=== PATIENT | female | born 1960 | race Caucasian/White ===

== ENCOUNTER 2019-07-06 05:46 | Emergency (ER) | payer BC, SELFPAY | END 2019-07-06 08:51 | disposition home or self-care (01) | PROVIDERS: Family Provider Family Medicine | DX: J18.9 Pneumonia, unspecified organism (principal); J45.909 Unspecified asthma, uncomplicated ==

== ENCOUNTER 2019-12-17 13:24 | Outpatient (RCR) | payer BC, SELFPAY | END 2020-01-04 23:59 | disposition home or self-care (01) | LOC: SPT 13:24 | PROVIDERS: PCP Family Medicine; Visit Provider Family Medicine | DX: G89.29 Other chronic pain (principal); M54.9 Dorsalgia, unspecified | CPT/HCPCS: 97110; 97161 ==

== ENCOUNTER → 2020-08-21 08:47 | Outpatient (BNVA) | payer BC, SELFPAY | PROVIDERS: PCP Family Medicine; Visit Provider Surgery | DX: R10.9 Unspecified abdominal pain (principal) | CPT/HCPCS: 87635 ==

== ENCOUNTER 2020-08-24 06:46 | Day surgery (SDC) | payer BC, SELFPAY ==
[2020-08-23 11:10] VITALS: BMI 24.1
[2020-08-24] VITALS (10 sets, daily range): BP systolic 116–133; BP diastolic 72–83; PULSE 63–100; RESP 12–22; TEMP 36.3–36.6; O2SAT 99–100
[2020-08-24] MEDS: sodium chloride 0.9% 1,000 ML 30 ML IV (07:20)
--- NOTE | 2020-08-24 07:34 | ANES.PREANE2 ---
Pre-Anesthetic Assessment Pre-Anesthetic Assessment: Height/Weight: Height 1.65 m Weight 65.771 kg Temp Pulse Resp BP Pulse Ox 98 F 68 20 H 133/80 100 08/24/20 07:03 08/24/20 07:03 08/24/20 07:03 08/24/20 07:03 08/24/20 07:03 Preop Diagnosis: abominal pain Proposed Procedure: Operation Date: 08/24/20 08:25 Proposed Procedures p Laparoscopic Cholecystectomy 67792 K80.10(Not Applicable) - Boubacar Abraham MD Familial anesthetic complications: occassional PONV Was Beta Chastity taken within 24 hours: N/A Last intake: Intake Last Liquid Date 08/23/20 Last Liquid Time 23:30 Last Solid Date 08/23/20 Last Solid Time 18:00 Social: Social History: No alcohol and No tobacco Exam: Pre-Anes Outpt Exam: alert, oriented x 3, clear to auscultation bilaterally and regular rate & rhythm Airway: Cervical ROM: WNL MP: 1 Dentition: Partials Pulmonary: Pulmonary: Asthma GI: GI: GERD Anesthetic Plan: ASA status: 3 Anesthesia: General Risk of > 500 ml blood loss (7ml/kg in children): No Meds/Allergies Current Medications: Current Medications Generic Name Dose Route Start Last Admin Trade Name Freq PRN Reason Stop Dose Admin Sodium Chloride 1,000 mls @ 30 ml s/hr 08/24/20 07:00 08/24/20 07:20 Sodium Chloride 0.9% IV 08/25/20 06:59 30 mls/hr .Q24H MERY Administration Data Anesthesia Cardiac Studies: No Data to Display
[2020-08-24 07:47] LABS: Alanine Aminotransferase 7 U/L (0-33); Albumin Level 4.4 g/dL (3.5-5.2); Alkaline Phosphatase 62 IU/L (35-105); Aspartate Amino Transferase 12 U/L (0-32); Globulin 2.5 g/dL (1.3-4.6); Total Bilirubin 0.4 mg/dL (0.15-1.2); Total Protein 6.9 g/dL (6.6-8.7)
--- NOTE | 2020-08-24 07:56 | W.PM.OPSUD ---
Surgery/Procedure H&P Update DATE OF PROCEDURE: August 24, 2020 DATE H&P PERFORMED: 08/15/20 H&P UPDATE INFORMATION: No changes to prior documentation PREOP DIAGNOSIS: abominal pain PLANNED PROCEDURE: Operation Date: 08/24/20 08:25 Proposed Procedures p Laparoscopic Cholecystectomy 37911 K80.10(Not Applicable) - Boubacar Abraham MD
[2020-08-24] MEDS: clindamycin 900 MG/50 ML PREMIX 100 MG IV (08:00)
--- NOTE | 2020-08-24 08:45 | P.OP_ITS ---
Operative Report Date of procedure: August 24, 2020 Pre-op Diagnosis: Symptomatic cholelithiasis. Post-op diagnosis: same Procedure Done: Laparoscopic cholecystectomy. Specimens removed/disposition: Gallbladder. Surgeon: Boubacar Abraham Anesthesia: General Estimated blood loss (mL): 5 Complications: None. Condition: stable Disposition: PACU Procedure: The patient was brought to the Operating Room and was placed in a supine position on the Operating Room table. General endotracheal anesthesia was induced. The abdomen was prepped and draped in a sterile fashion. A small vertical incision was carried out in the inferior aspect of the umbilicus. Blunt dissection was carried out down to the fascia, which was grasped with a Hannah clamp. A stay suture of 0 Vicryl was placed on either side of the midline and the midline fascia was incised. The underlying peritoneum was opened bluntly and the Karina port was placed directly into the peritoneal cavity and was held in place with the inflatable balloon. The peritoneal cavity was insufflated with carbon dioxide. The laparoscope was used to inspect the abdominal cavity. The patient had a light omental adhesion to the left side of the umbilicus. This was eventually taken down. No other gross abnormalities were initially noted. A 5 millimeter port was placed in the epigastrium under direct vision. Two 5-millimeter ports were placed on the right side of the abdomen under direct vision. The gallbladder was grasped and was elevated. The patient had adhesions along the fundus and infundibular region of the gallbladder. These were all taken down using blunt dissection with some cautery to maintain hemostasis. Blunt dissection and hydrodissection were carried out in the infundibular region of the gallbladder and the cystic duct and cystic artery were identified. The gallbladder was partially removed from the liver bed using cautery and the spatula to confirm the anatomy before the structures were clipped and divided. The gallbladder was then removed from the liver bed using cautery and the spatula. After the gallbladder had been removed from the liver bed, the laparoscope was moved to the epigastric port and the gallbladder was removed from the peritoneal cavity through the umbilical port site. The stay sutures of Vicryl were tied to each other at the umbilicus, closing the defect so that it was airtight. The perihepatic spaces were irrigated with saline and the liver bed was reinspected. No ongoing problems were seen. The remaining ports were removed from the abdominal wall and the pneumop eritoneum was evacuated. All skin incisions were closed using inverted interrupted sutures of 4-0 Vicryl. Benzoin and Steri-Strips were placed over the incisions and Band-Aids followed. The patient was taken to the Recovery Area in stable condition postoperatively.
[2020-08-24] MEDS: fentaNYL 50 mcg/mL INJ 2mL IVP (08:51)
[2020-08-24] MEDS: ondansetron 2 mg/ML SDV 2 mL 4 MG IVP (09:03)
[2020-08-24] MEDS: HYDROcodone-acetaminophen 5-325 mg Tablet 1 TAB PO (09:32)
--- NOTE | 2020-08-24 17:18 | ANE.PACU2 ---
Inpatient post-anesthesia follow up: Airway intact: Yes Vital signs: Temperature 97.4 F Pulse Rate 74 Respiratory Rate 16 Blood Pressure 123/83 Pulse Oximetry 100 Oxygen Delivery Me thod Room Air Oxygen Flow Rate 8 Fraction of Inspir ed Oxygen Hydration adequate: Yes Nausea and vomiting: No Pain level: 1 Mental status: Baseline
== END 2020-08-24 09:50 | disposition home or self-care (01) ==
PROVIDERS: PCP Family Medicine; Visit Provider Surgery
PROC: 0FT44ZZ Resection of Gallbladder, Percutaneous Endoscopic Approach (ICD-10-PCS; CPT 47562; principal; 2020-08-24 08:25)
DX: K80.10 Calculus of gallbladder with chronic cholecystitis without obstruction (principal); J45.909 Unspecified asthma, uncomplicated; K21.9 Gastro-esophageal reflux disease without esophagitis
CPT/HCPCS: 47562; 12345; 36415; 80076; 88304; J0131; J1100; J1200; J2250; J2405; J2704; J2710; J3010; J3490; J7030

== ENCOUNTER 2021-02-03 05:27 | Emergency (ER) | payer BC, SELFPAY ==
[2021-02-03 05:45] VITALS: BP 134/81; PULSE 69; RESP 17; TEMP 36.4; O2SAT 98; BMI 24.0
--- NOTE | 2021-02-03 06:08 | XRR_ITS ---
PROCEDURE INFORMATION: Exam: XR Chest Exam date and time: 02/03/2021 6:08 AM Age: 61 years old Clinical indication: Chest wall pain; Additional info: Chest pain TECHNIQUE: Imaging protocol: XR of the chest. Views: 1 view. Total images: 1 COMPARISON: CR Chest 1 [place] [id number] 07/06/2019 6:17 AM FINDINGS: Lungs: Coarse chronic pulmonary markings. Trace atelectasis or scar noted in the left lung base. Pleural spaces: Unremarkable. No pleural effusion. No pneumothorax. Heart/Mediastinum: Small calcified right paratracheal nodes. Bones/joints: Osseous structures are unchanged from the prior exam. XR/XR chest 1V portable [id number] IMPRESSION: 1. Coarse chronic pulmonary markings. 2. Trace atelectasis or scar noted in the left lung base.
--- NOTE | 2021-02-03 06:08 | CTR_ITS ---
PROCEDURE INFORMATION: Exam: CTA Chest With Contrast Exam date and time: 02/03/2021 6:08 AM Age: 61 years old Clinical indication: Pain; Chest pressure; Additional info: Chest pain TECHNIQUE: Imaging protocol: Computed tomographic angiography of the chest with contrast. 3D rendering (Not supervised by radiologist): MIP and/or 3D reconstructed images were created by the technologist. Total images: 840 Radiation optimization: All CT scans at this facility use at least one of these dose optimization techniques: automated exposure control; mA and/or kV adjustment per patient size (includes targeted exams where dose is matched to clinical indication); or iterative reconstruction. Contrast material: VISIPAQUE 320; Contrast volume: 70 ml; Contrast route: INTRAVENOUS (IV); COMPARISON: CR (CHEST, ) 02/03/2021 7:09 AM RADIATION DOSE METRICS: Total DLP (mGy-cm): 467.19 FINDINGS: Pulmonary arteries: Pulmonary artery evaluation of good technical quality with no pulmonary artery embolism identified. Aorta: No aortic aneurysm nor dissection. Lungs: Mild subpleural ground-glass opacities with minimal interstitial thickening seen in the right lung and at the left lung base may represent atelectasis and pneumonia, possible atypical pneumonia. Pleural spaces: Unremarkable. No pneumothorax. No pleural effusion. Heart: Unremarkable. No cardiomegaly. No pericardial effusion. Lymph nodes: Unremarkable. No enlarged lymph nodes. Gallbladder and bile ducts: Prior cholecystectomy noted. Spleen: Incidental splenic granulomata are noted. Bones/joints: Unremarkable. No acute fracture. Soft tissues: Unremarkable. CT/CT angio chest PE protcl [id number] IMPRESSION: 1. No aortic aneurysm nor dissection. 2. No pulmonary artery embolism identified. 3. Mild subpleural ground-glass opacities with minimal interstitial thickening seen in the right lung and at the left lung base may represent atelectasis and pneumonia, possible atypical pneumonia. Radiation Dose CTDIVOL = (mGy): DLP = 467.19 (mGy-cm)
--- NOTE | 2021-02-03 06:08 | ECG_ITS ---
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
[2021-02-03 07:31] LABS: Basophils % 0.4 %; Eosinophils # 0.1 10^3/uL (0.0-0.8); Eosinophils % 1.5 %; Hemoglobin 11.7 g/dL (11.5-15.3); Lymphocytes # 1.3 10^3/uL (0.8-4.8); Lymphocytes % 24.9 %; Mean Corpuscular HGB Conc 33.4 g/dL (30.0-36.0); Mean Corpuscular Hemoglobin 33.9 pg (28.0-34.0); Mean Corpuscular Volume 101.4 fL (81-99); Mean Platelet Volume 11.2 fL (7.4-10.4); Monocytes # 0.4 10^3/uL (0.2-0.9); Monocytes % 7.7 %; Neutrophils # 3.46 10^3/uL (1.8-7.7); Neutrophils % 65.1 %; Nucleated Red Blood Cells % 0 %; Platelet Count 224 10^3/cmm (130-400); Red Blood Count 3.45 10^6/uL (4.1-5.3); Red Cell Distribution Width 11.6 % (12.1-15.1); White Blood Count 5.3 10^3/uL (4.0-10.0)
[2021-02-03 07:45] LABS: Alanine Aminotransferase 9 U/L (0-33); Albumin Level 4.4 g/dL (3.5-5.2); Alkaline Phosphatase 60 IU/L (35-105); Anion Gap 17.8 (5-19); Aspartate Amino Transferase 11 U/L (0-32); Blood Urea Nitrogen 22 mg/dL (8-23); Calcium 9.3 mg/dL (8.5-10.5); Carbon Dioxide 20 mmol/L (22-29); Chloride 105 mmol/L (98-107); Globulin 2.8 g/dL (1.3-4.6); Glomerular Filtration Rate 41.8 mL/min (90-130); Glucose 91 mg/dL (65-115); Osmolality Calculated 289 mOsm/kg (285-295); Potassium 4.8 mmol/L (3.5-5.1); Sodium 138 mmol/L (136-145); Total Bilirubin 0.2 mg/dL (0.15-1.2); Total Protein 7.2 g/dL (6.6-8.7)
[2021-02-03 07:47] LABS: Troponin(5th) Baseline 6 ng/L (0-10)
--- NOTE | 2021-02-03 07:51 | ED_ITS ---
HPI - Chest Pain General: Chief Complaint: Chest Pain Stated Complaint: cp Time Seen by Provider: 02/03/21 06:04 History of Present Illness: HPI narrative: 61-year-old female presents emergency room from chest pain that began yesterday around 5 or 6 PM chest pain central to her chest radiating into her back she has been mildly short of breath with that she does not recall any particular activity it seemed to exacerbate it. There is no worsening with deep inspiration or with palpation. She is 3 weeks post Covid she is not on any anticoagulants. No history of coronary disease no history of hypertension hyperlipidemia diabetes or smoking. No hemoptysis or productive cough no fever sweats or chills. There is no known history of coronary artery disease although she mentions a few of her family members have had it at more than stages. Patient has had episodes like this in the past but have not visited lower lasted as long. No previous evaluation MD complaint: chest pain Onset (ago): hour(s) (Greater than 24 hours) Timing of current episode: episodic Prior episodes: Yes Onset: during rest Pain location: substernal Pain radiation: back Severity: moderate Quality: tightness and heaviness Relieving factors: nothing Exacerbating factors: nothing Context: other (3 weeks post Covid) Associated symptoms: Deny abdominal pain, diaphoresis, dyspnea, fever(s), leg edema, nausea, palpitations, sense of impending doom, syncope or vomiting Treatment prior to arrival: none Review of Systems Const: Denies: fever(s) or diaphoresis ENMT: Denies: throat pain, ear or mastoid pain, nasal discharge or nasal congestion Card: Denies: palpitations or syncope Resp: Denies: dyspnea GI: Denies: abdominal pain, nausea or vomiting : Denies: flank pain, difficulty voiding, dysuria, urinary frequency or urinary urgency Skin/Breast: Denies: rash or pruritus Physical Exam Const: COMMON NORMALS: no acute distress GENERAL APPEARANCE: cooperative and comfortable ORIENTATION/CONSCIOUSNESS: Yes awake, Yes oriented to person, Yes oriented to place and Yes oriented to time HENMT: COMMON NORMALS: normocephalic, atraumatic, hearing grossly normal bilaterally, external ears normal, EAC's normal, TM's normal bilaterally, Normal nasal mucous membranes and turbinates present, moist oral mucous membranes and oropharynx normal HEAD & SCALP: normocephalic and atraumatic NOSE: Normal nasal mucous membranes and turbinates present EXTERNAL EAR: Yes external ears normal EXTERNAL AUDITORY CANAL: EAC's normal TYMPANIC MEMBRANE: TM's normal bilaterally Eye: COMMON NORMALS: Equal, round and reactive pupils present, EOMs intact bilaterally, conjunctivae normal and no scleral icterus CONJUNCTIVA: Yes conjunctivae normal PUPIL: Yes Equal, round and reactive pupils present Neck/C-Spine: COMMON NORMALS: full ROM, no lymphadenopathy, supple and no JVD Lymph: LYMPHATIC: no lymphadenopathy noted and no lymphedema noted Chest: OTHER: Pain reproducible with palpation across the chest and movement. Resp: COMMON NORMALS: normal respiratory effort, No retractions, No use of accessory muscles and clear to auscultation bilaterally AUSCULTATION: clear to auscultation bilaterally Cardio: COMMON NORMALS: no JVD, regular rate, regular rhythm and No murmurs present (Cardio) RATE: regular rate RHYTHM: regular rhythm GI: COMMON NORMALS: Soft to palpation and No hepatosplenomegaly present AUSCULTATION: Yes normoactive bowel sounds PALPATION: Yes Soft to palpation, No Tenderness to palpation present (GI), No Guarding due to palpation present (GI) and Yes No hepatosplenomegaly present Extremity: COMMON NORMALS: normal to inspection, capillary refill normal, no clubbing, cyanosis or edema, no calf tenderness and no pedal edema Neuro: SENSORIUM/ORIENTATION: Yes oriented to person, Yes oriented to place and Yes oriented to time Skin: COMMON NORMALS: no rashes or lesions noted GENERAL SKIN EXAM: no rashes or lesions noted Course Vital Signs: Vital signs: Vital Signs Temperature 97.6 F 02/03/21 05:45 Pulse Rate 83 02/03/21 10:59 Respiratory Rate 16 02/03/21 10:59 Blood Pressure 110/78 02/03/21 10:59 Pulse Oximetry 98 02/03/21 10:59 MDM - Chest Pain MDM Narrative: Medical decision making narrative: Reviewed labs and imaging with the patient. We will discharge her home have her take baby aspirin daily and set her up for a Lexiscan sestamibi stress test. Lab Data: Labs: Lab Results 02/03/21 02/03/21 02/03/21 Range/Units 07:10 07:10 07:10 WBC 5.3 (4.0-10.0) 10^3/ uL RBC 3.45 L (4.1-5.3) 10^6/u L Hgb 11.7 (11.5-15.3) g/dL Hct 35.0 L (37.0-47.0) % MCV 101.4 H (81-99) fL MCH 33.9 (28.0-34.0) pg MCHC 33.4 (30.0-36.0) g/dL RDW 11.6 L (12.1-15.1) % Plt Count 224 (130-400) 10^3/c mm MPV 11.2 H (7.4-10.4) fL Neut % (Auto) 65.1 % Lymph % (Auto) 24.9 % [facility] [place] % (Auto) 7.7 % Eos % (Auto) 1.5 % Baso % (Auto) 0.4 % Neut # (Auto) 3.46 (1.8-7.7) 10^3/u L Lymph # (Auto) 1.3 (0.8-4.8) 10^3/u L [facility] [place] [facility] # (Auto) 0.4 (0.2-0.9) 10^3/u L Eos # (Auto) 0.1 (0.0-0.8) 10^3/u L Baso # (Auto) 0.0 (0.0-0.1) 10^3/u L Nucleated RBC % (a uto) 0 % Nucleated RBCs # 0.0 /100WBC Sodium 138 (136-145) mmol/L Potassium 4.8 (3.5-5.1) mmol/L Chloride 105 (98-107) mmol/L Carbon Dioxide 20 L (22-29) mmol/L Anion Gap 17.8 (5-19) BUN 22 (8-23) mg/dL Creatinine 1.3 H (0.5-0.9) mg/dL GFR Calculation 41.8 L (90-130) mL/min Glucose 91 (65-115) mg/dL Calculated Osmolal ity 289 (285-295) mOsm/k g Calcium 9.3 (8.5-10.5) mg/dL Total Bilirubin 0.2 (0.15-1.2) mg/dL AST 11 (0-32) U/L ALT 9 (0-33) U/L Alkaline Phosphata se 60 (35-105) IU/L Troponin T Baselin e 6 (0-10) ng/L Troponin T 120 Min lime (0-10) ng/L Delta Troponin T (0-10) ABS# Total Protein 7.2 (6.6-8.7) g/dL Albumin 4.4 (3.5-5.2) g/dL Globulin 2.8 (1.3-4.6) g/dL 02/03/21 Range/Units 09:40 WBC (4.0-10.0) 10^3/ uL RBC (4.1-5.3) 10^6/u L Hgb (11.5-15.3) g/dL Hct (37.0-47.0) % MCV (81-99) fL MCH (28.0-34.0) pg MCHC (30.0-36.0) g/dL RDW (12.1-15.1) % Plt Count (130-400) 10^3/c mm MPV (7.4-10.4) fL Neut % (Auto) % Lymph % (Auto) % [facility] [place] [facility] % (Auto) % Eos % (Auto) % Baso % (Auto) % Neut # (Auto) (1.8-7.7) 10^3/u L Lymph # (Auto) (0.8-4.8) 10^3/u L [facility] # (Auto) (0.2-0.9) 10^3/u L Eos # (Auto) (0.0-0.8) 10^3/u L Baso # (Auto) (0.0-0.1) 10^3/u L Nucleated RBC % (a uto) % Nucleated RBCs # /100WBC Sodium (136-145) mmol/L Potassium (3.5-5.1) mmol/L Chloride (98-107) mmol/L Carbon Dioxide (22-29) mmol/L Anion Gap (5-19) BUN (8-23) mg/dL Creatinine (0.5-0.9) mg/dL GFR Calculation (90-130) mL/min Glucose (65-115) mg/dL Calculated Osmolal ity (285-295) mOsm/k g Calcium (8.5-10.5) mg/dL Total Bilirubin (0.15-1.2) mg/dL AST (0-32) U/L ALT (0-33) U/L Alkaline Phosphata se (35-105) IU/L Troponin T Baselin e (0-10) ng/L Troponin T 120 Min lime 6.00 (0-10) ng/L Delta Troponin T 0 (0-10) ABS# Total Protein (6.6-8.7) g/dL Albumin (3.5-5.2) g/dL Globulin (1.3-4.6) g/dL Discharge Plan Discharge Patient Disposition: Home Clinical Impression: Atypical chest pain, Pleuritic chest pain Condition: Stable Prescriptions: New diclofenac sodium 75 mg tablet,delayed release (DR/EC) 75 mg PO Q12H PRN (Reason: pain) Qty: 20 RF: 0 Discontinued naproxen 500 mg Tablet 500 mg PO BID PRN (Reason: Pain) RF: 0 No Action tizanidine 4 mg Tablet 4 mg PO Q8H PRN (Reason: Muscle Spasm) RF: 0 sumatriptan succinate 100 mg Tablet 100 mg PO Q2H PRN (Reason: Migraine Headache) RF: 0 szqxrmdkwg-dgncztlmcgzlz-pdes 50-325-40 mg tablet 1 tab PO PRN PRN (Reason: Migraine Headache) RF: 0 benzonatate 100 mg capsule 100 mg PO PRN PRN (Reason: Cough) RF: 0 pantoprazole 40 mg tablet,delayed release (DR/EC) 40 mg PO DAILY RF: 0 Ventolin HFA 90 mcg/actuation Hfa Aerosol Inhaler 1 inh INHALATION QID RF: 0 Skelaxin 800 mg Tablet 800 mg PO TID PRN (Reason: Muscle Spasm) RF: 0 diclofenac sodium 1 % Gel 2 g TOPICAL QID RF: 0 hydrocodone-acetaminophen 5-325 mg tablet 1 - 2 tab PO Q5H PRN (Reason: pain) Qty: 30 RF: 0 Discharge Orders: Discharge ED (Routine); Ordered 02/03/21 Ordered By: Santosh Escoto Referrals: Chung Loyola MD [Primary Care Provider] - Discharge Diet: Usual diet Discharge Activity: Increase activity as tolerated Patient Instructions: Opioid Safety Activity Restrictions/Additional Instructions: Management will call with schedule for Anirudh quesada stress test Coding Level of Care Code ED 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
[2021-02-03 08:08] VITALS: BP 139/79; PULSE 64; RESP 15; O2SAT 99
--- NOTE | 2021-02-03 08:08 | ECG_ITS ---
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
[2021-02-03] MEDS: iodixanol 320 mg/mL 100mL Btl IV (08:26)
[2021-02-03 10:17] LABS: Troponin 5 2HR Delta 0 ABS# (0-10)
[2021-02-03 10:59] VITALS: BP 110/78; PULSE 83; RESP 16; O2SAT 98
== END 2021-02-03 11:00 | disposition home or self-care (01) ==
PROVIDERS: Emergency Provider Family Medicine; PCP Family Medicine
DX: R07.89 Other chest pain (principal); R07.1 Chest pain on breathing; Z86.16 Personal history of COVID-19
CPT/HCPCS: 71045; 71275; 80053; 84484; 85025; 93005; 99284; Q9967

== ENCOUNTER 2021-03-28 09:21 | Outpatient (CLI) | payer BC, SELFPAY ==
[2021-03-28 09:44] VITALS: BMI 24.9
--- NOTE | 2021-03-28 09:46 | ECG_ITS ---
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 Interpretive Statements NAME OF STUDY: LEXISCAN SESTAMIBI STRESS TEST INDICATION: Chest Pain, PROCEDURE: At the baseline, the EKG revealed normal sinus rhythm with a heart rate of [address]-T changes changes. The baseline blood pressure was 147/84 mm Hg with a heart rate of 74 beats/min. Lexiscan was infused over a period of 20 seconds. A total of 0.4 milligrams of Lexiscan was infused. The stress phase was continued for a total of 5 minutes. Heart rate at the end of the stress phase was 106 with a blood pressure was not obtained. The EKG at the peak infusion revealed no significant changes. Sestamibi was injected 20 seconds after the Lexiscan infusion. Blood pressure at the end of the recovery phase was was not obtained with a heart rate of 102 per minute. CONCLUSION: 1. No significant EKG changes with the LexiScan infusion 2. No LexiScan induced chest pain or cardiac arrhythmia 3. Normal blood pressure and heart rate response 4. Sestamibi/sestamibi perfusion scan pending; see separate report. Electronically Signed On 03-29-2021 0:50:42 CDT by Homero Delgadillo M.D. [id number]
--- NOTE | 2021-03-28 09:47 | NMCV_ITS ---
NM madai perf SPECT r/s* [id number] Oly Loza Age: 61 Gender: F : 1960 Exam Date: 03/28/2021 10:34 Ordering Phys: Chung Loyola MD Technologist: OLLIE Salazar Exam Location: [facility] Indications: CHEST PAIN STRESS TEST Please [facility] IMAGE PROTOCOL Rest/Stress 1 Lexiscan Day Radiopharmaceutical Dose (mCi) Administration Site Administered by Rest: Tc-99m 10.5 IV OLLIE Pineda Sestamibi Stress:Tc-99m 32.3 IV OLLIE Pineda Sestamibi Rest: 28-Mar-2021 60 Discovery 630 Stress: 28-Mar-2021 30 Discovery 630 0.4mg Lexiscan. Images obtained in supine and prone position. SPECT RESULTS Technical Quality: Excellent Raw Data Analysis: Normal Image Corrections: No attenuation or motion correction applied Summed Stress Score: 0 Summed Rest Score: 3 Summed Difference Score: 0 PERFUSION FINDINGS Patchy areas of decreased tracer uptake were noted in the inferoseptal and anteroseptal regions. No significant reversibility was noted in these regions. FUNCTIONAL RESULTS (calculated via Gated SPECT) Stress Image LV EF (%): 76 Stress EDV (mL):78 TID: 0.94 Stress ESV (mL):19 FUNCTIONAL FINDINGS: Segmental wall motion analysis revealing no gross wall motion abnormalities IMPRESSIONS 1. Myocardial perfusion imaging revealing areas of patchy decreased persistent tracer uptake in the inferoseptal and anteroseptal regions, most likely represent attenuation artifacts. 2. Normal LV ejection fraction 76%. 3. LV wall motion analysis revealed no gross wall motion abnormalities. 4. Normal LV volume. No significant coronary ischemia, based on the above findings Dr Homero Delgadillo MD [facility] (Electronically Signed) Final Date: 28 March 2021 18:56 S
[2021-03-28] MEDS: ondansetron 2 mg/ML SDV 2 mL 4 MG IVP ×2 (11:22→11:39)
[2021-03-28] MEDS: regadenoson 0.4 Mg/5 ml Syringe IVP (11:32)
[2021-03-28 11:43] VITALS: BP 140/83; PULSE 99
== END 2021-03-28 09:22 | disposition home or self-care (01) ==
LOC: CDL 09:24
PROVIDERS: PCP Family Medicine; Visit Provider Family Medicine
DX: R07.9 Chest pain, unspecified (principal)
CPT/HCPCS: 78452; 93017; A9500; J2405; J2785

== ENCOUNTER → 2022-07-15 15:12 | Outpatient (BNVA) | payer OTHER, SELFPAY | PROVIDERS: PCP Family Medicine; Referring Provider Family Medicine; Visit Provider Student in an Organized Health Care Education/Training Program | DX: M17.12 Unilateral primary osteoarthritis, left knee (principal) | CPT/HCPCS: 73590 ==

== ENCOUNTER 2022-07-15 16:19 | Outpatient (CLI) | payer OTHER, SELFPAY | END 2022-07-15 16:20 | disposition home or self-care (01) | LOC: SPT 16:19 | PROVIDERS: PCP Family Medicine; Visit Provider Student in an Organized Health Care Education/Training Program | DX: Z46.89 Encounter for fitting and adjustment of other specified devices (principal); M25.562 Pain in left knee | CPT/HCPCS: 97760; L1812 ==

== ENCOUNTER → 2022-09-09 14:07 | Outpatient (BNVA) | payer OTHER, SELFPAY | PROVIDERS: PCP Family Medicine; Visit Provider Student in an Organized Health Care Education/Training Program | DX: M17.0 Bilateral primary osteoarthritis of knee (principal) | CPT/HCPCS: 73560; 73565 ==

== ENCOUNTER 2022-10-07 16:23 | Outpatient (CLI) | payer OTHER, SELFPAY ==
--- NOTE | 2022-10-07 16:30 | CT_ITS ---
WS: [id number] CT LEFT knee, noncontrast HISTORY: Surgery 10/23/2022 TECHNIQUE: Protocol for AKI total knee replacement has been obtained. This includes axial imaging th rough the LEFT hip, LEFT knee and LEFT ankle. DLP: 1019.67 mGy.cm COMPARISON: None available. Pelvis: Mild narrowing of the SI joints. Mild narrowing of the hip joints. No destructive bone lesion s. LEFT knee: Mild tricompartment joint space narrowing with small hypertrophic osteophytes. No fracture or destructive bone process. LEFT ankle: Normal soft tissues. No fractures. CT/CT knee LT wo con* [id number] IMPRESSION: CT imaging provided for [facility] robotic total knee replacement.
== END 2022-10-07 16:24 | disposition home or self-care (01) ==
LOC: RAD 16:26
PROVIDERS: PCP Family Medicine; Visit Provider Student in an Organized Health Care Education/Training Program
DX: M17.12 Unilateral primary osteoarthritis, left knee (principal); Z01.818 Encounter for other preprocedural examination; M25.762 Osteophyte, left knee
CPT/HCPCS: 73700

== ENCOUNTER 2022-10-15 09:18 | Outpatient (CLI) | payer OTHER, SELFPAY | END 2022-10-15 09:19 | disposition home or self-care (01) | LOC: RT 10-17 12:41 | PROVIDERS: PCP Family Medicine; Visit Provider Student in an Organized Health Care Education/Training Program | DX: Z13.6 Encounter for screening for cardiovascular disorders (principal) | CPT/HCPCS: 93005 ==

== ENCOUNTER 2022-10-23 10:00 | Observation (INO) | payer OTHER, SELFPAY ==
[2022-10-15 09:10] VITALS: BMI 24.5
--- NOTE | 2022-10-15 09:18 | ECG_ITS ---
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 Measurements Intervals [place] Rate: 72 P: 61 TX: 161 QRS: 58 QRSD: 90 T: 63 QT: 361 QTc: 398 Interpretive Statements SINUS RHYTHM INTERPRETATION BASED ON A DEFAULT AGE OF 40 YEARS Compared to ECG 02/03/2021 08:26:34 No significant changes Electronically Signed On 10-16-2022 2:23:47 CDT by Homero Dlegadillo M.D. [id number]
[2022-10-15 09:35] LABS: Add Urine Microscopic? NO; Charge for UA Resulting for Rev
--- NOTE | 2022-10-15 09:52 | ANES.PREANE2 ---
Pre-Anesthetic Assessment Height/Weight: Height 1.63 m Weight 64.864 kg Preop Diagnosis: Symptomatic cholelithiasis. Operation Date: 10/23/22 07:00 Proposed Procedures p Left Knee Total AKI 94530,M17.12(Left) - Braydon Fausto, DO Familial anesthetic complications: None Social No alcohol and No tobacco Exam alert, oriented x 3, clear to auscultation bilaterally and regular rate & rhythm Airway Mallampati: Class II Dentition: partials Pulmonary Asthma (mostly during allergies) GI Gastroesophageal Reflux Disease Anesthetic Plan ASA status: 2 Anesthesia: Regional (specify below) (spinal + adductor) Risk of > 500 ml blood loss (7ml/kg in children): No Medications/Allergies Home Medications Medication Instructions Recorded Confirmed Last Taken Type albuterol sulfate 90 mcg/actuation 1 inh inhalation QID 08/23/20 10/15/22 10/15/22 History aerosol inhaler (Ventolin HFA) benzonatate 100 mg capsule 100 mg PO PRN PRN Cough 08/23/20 10/15/22 Unknown History bsaqnwgqaa-yjbtugojlqaip-smtmujyo 1 tab PO PRN PRN Migraine Headache 08/23/20 10/15/22 Unknown History 50 mg-325 mg-40 mg tablet diclofenac sodium 1 % topical gel 2 g topical QID 08/23/20 10/15/22 Unknown History sumatriptan succinate 100 mg tablet 100 mg PO Q2H PRN Migraine Headache 08/23/20 10/15/22 Unknown History tizanidine 4 mg tablet 4 mg PO Q8H PRN Muscle Spasm 08/23/20 10/15/22 Unknown History Hinged Knee Brace #1 ea 07/16/22 10/07/22 Unknown Rx naproxen sodium 220 mg tablet 220 mg PO BID PRN Pain 10/15/22 10/15/22 Unknown History sulfasalazine 500 mg tablet 1,000 mg PO BID 10/15/22 10/15/22 10/15/22 History Allergies Allergy/AdvReac Type Severity Reaction Status Date / Time amitriptyline Allergy ALGY-Rash Verified 10/07/22 13:49 Cephalosporins Allergy ALGY-Rash Verified 10/07/22 13:49 Penicillins Allergy ALGY-Rash Verified 10/07/22 13:49 tramadol Allergy ADR-Seizure Verified 10/07/22 13:49 PFSH Anesthesia Medical History Degenerative joint disease of left knee Data Anesthesia 10/15/22 09:22 10/15/22 09:22 Short CBC 10/15/22 Range/Units 09:22 WBC Cancelled Hgb Cancelled Hct Cancelled MCV Cancelled Plt Count Cancelled Cardiac Studies: Sestamibi Stress Test (Cardiology) 03/28/21
[2022-10-15 09:53] LABS: Basophils % 0.2 %; Eosinophils # 0.1 10^3/uL (0.0-0.8); Eosinophils % 1.9 %; Hematocrit 36.3 % (37.0-47.0); Hemoglobin 12.2 g/dL (11.5-15.3); Lymphocytes # 1.2 10^3/uL (0.8-4.8); Lymphocytes % 28.3 %; Mean Corpuscular HGB Conc 33.6 g/dL (30.0-36.0); Mean Corpuscular Hemoglobin 35.1 pg (28.0-34.0); Mean Corpuscular Volume 104.3 fl (81-99); Mean Platelet Volume 11.3 fL (7.4-10.4); Monocytes # 0.3 10^3/uL (0.2-0.9); Monocytes % 7.7 %; Neutrophils # 2.64 10^3/uL (1.8-7.7); Neutrophils % 61.7 %; Nucleated Red Blood Cells % 0 %; Platelet Count 163 10^3/cmm (130-400); Red Blood Count 3.48 10^6/uL (4.1-5.3); White Blood Count 4.3 10^3/uL (4.0-10.0)
[2022-10-15 09:57] LABS: Bilirubin Urine Neg (Negative); Blood Urine Neg (Negative); Glucose Urine UA Norm (Normal); Ketones Urine Negative (Negative); Nitrate Urine Negative (Negative); Protein Urine Neg (Negative); Specific Gravity, Urine 1.015 (1.005-1.030); Urine Appearance Clear (CLEAR); Urine Color Yellow (Yellow); pH Urine 6 (5-7)
[2022-10-15 09:58] LABS: Anion Gap 14.1 (5-19); Blood Urea Nitrogen 13 mg/dL (8-23); Calcium 9.1 mg/dL (8.5-10.5); Carbon Dioxide 23 mmol/L (22-29); Chloride 105 mmol/L (98-107); Glomerular Filtration Rate 72.9 mL/min (90-130); Glucose 87 mg/dL (65-115); Osmolality Calculated 285 mOsm/kg (285-295); Potassium 4.1 mmol/L (3.5-5.1); Sodium 138 mmol/L (136-145)
[2022-10-15 09:58] LABS: Leukocyte Esterase Urine Negative (Negative); Urobilinogen Urine Norm (Negative)
[2022-10-23] VITALS (19 sets, daily range): BP systolic 93–151; BP diastolic 53–90; PULSE 65–114; RESP 16–18; TEMP 36.1–36.8; O2SAT 96–99
[2022-10-23] MEDS: sodium chloride 0.9% 1,000 ML 30 ML IV (06:12)
--- NOTE | 2022-10-23 06:50 | W.PM.OPSUD ---
Surgery/Procedure H&P Update DATE OF PROCEDURE: October 23, 2022 DATE H&P PERFORMED: 10/07/22 CHANGES TO PREVIOUS DOCUMENTATION: None PREOP DIAGNOSIS: Left knee degenerative joint disease PRIMARY INDICATION FOR PROCEDURE: Left knee degenerative joint disease, failed conservative treatment PLANNED PROCEDURE: Operation Date: 10/23/22 07:25 Proposed Procedures p Left Knee Total AKI 66599,M17.12(Left) - Braydon Lambert DO
[2022-10-23] MEDS: vancomycin 1,500 MG/300 ML PIGGYBACK 200 MG IV (07:48)
[2022-10-23] MEDS: clindamycin 600 MG/50 ML PREMIX 100 MG IV (08:15)
[2022-10-23] MEDS: acetaminophen 1,000 MG/100 ML PIGGYBACK 400 MG IV ×2 (08:20→15:25)
[2022-10-23] MEDS: tranexamic acid 1,000 mg/10mL SDV 1000 MG XX (08:35)
[2022-10-23] MEDS: ketorolac 30 mg/mL INJ XX (08:35)
[2022-10-23] MEDS: EPINEPHrine 1 mg/mL INJ XX (08:35)
--- NOTE | 2022-10-23 08:40 | ANES.PAUD2 ---
Pre-Anesthetic Update Pre-Anesthetic Assessment: Date of Surgery/Procedure: 10/23/22 Preop Diagnosis: Left knee degenerative joint disease Proposed Procedure: Operation Date: 10/23/22 07:25 Proposed Procedures p Left Knee Total AKI 31955,M17.12(Left) - Braydon Lambert, DO Any changes to Pre-Anesthetic Assessment?: No Last Intake: Intake Last Liquid Date 10/22/22 Last Liquid Time 20:00 Last Solid Date 10/22/22 Last Solid Time 20:00 Vitals: Temperature 97.9 F 10/23/22 06:08 Temperature Source Temporal Artery S can 10/23/22 06:08 Pulse Rate 69 10/23/22 06:08 Respiratory Rate 16 10/23/22 06:08 Blood Pressure 147/90 10/23/22 06:08 Blood Pressure Natividad n 109 10/23/22 06:08 Pulse Oximetry 96 10/23/22 06:08 Oxygen Delivery Me thod Room Air 10/23/22 06:08 Exam: Pre-Anes Outpt Exam: alert, oriented x 3, clear to auscultation bilaterally and regular rate & rhythm Cardiac Studies: Sestamibi Stress Test (Cardiology) 03/28/21 Anesthesia Procedures Nerve Block: Nerve Block 1: Main Anesthesia: spinal anesthesia block Time Out Performed: Yes Consent: requested by attending/covering physician, from patient, risks and benefits reviewed and patient agrees to proceed Nerve block location: adductor canal (left) Anesthesia monitors applied: pulse oximetry, EKG, BP cuff and oxygen Nerve block position: supine Anesthetic Used: ropivicaine 0.5% Amount of anesthesia used (mL): 20 Ultrasound used to: recognize landmarks Nerve Stimulator Used?: No Interscalene/Femoral BLK: 4 stimuplex 21 g needle used for position and inplane approach Injection: neg aspiration of heme Patient Tolerated Procedure: well Complications: none
--- NOTE | 2022-10-23 09:55 | P.OP_ITS ---
Brief Operative Note Date of procedure: 10/23/22 Pre-op diagnosis: Left knee degenerative joint disease Post-op diagnosis: same Procedure Done: Left total knee arthroplasty, cemented?Sloan robotic assisted Surgeon: Braydon Lambert Estimated blood loss (mL): 15 Complications: None Post-op Plan: Patient taken to PACU in stable condition recovering well. Will be admitted to the floor. Internal medicine consulted for medical management. PT/OT, weightbearing as tolerated left lower extremity, postoperative antibiotics, po stoperative TXA, pain control, DVT prophylaxis. Patient will receive appropriate discharge instruction as well as pain medication and DVT prophylaxis postoperatively. We will follow-up with me in the office in 2 weeks. All questions answered Condition: stable Disposition: floor Coding Level of Care Code Acute Code for Natty Wilson
--- NOTE | 2022-10-23 09:55 | P.OP_ITS ---
Operative Report Date of procedure: October 23, 2022 Pre-op diagnosis: Preop Diagnosis Left knee degenerative joint disease Procedure: Post-op diagnosis: Same Procedure done: Left total knee arthroplasty, cemented?robotic assisted Lsoan Implants: [place] triathlon size 4 femur?CR cemented [place] triathlon size 4 tibia universal baseplate cemented Sury triathlon symmetric patella size 33 mm Sury triathlon polyethylene 9 mm Surgeon: Braydon Lambert DO Estimated blood loss: 15 mL Tourniquet time: 62minutes IV fluids: 1000 mL Urine output: 400mL Complications: None Condition: stable Disposition: floor Brief History: Oly is a pleasant 62-year-old female established in my practice with chronic left knee degenerative joint disease.? pts has failed conservative treatment.? We talked about continued conservative approach versus operative intervention for her left knee given tricompartmental degenerative changes would recommend a left total knee arthroplasty as she has failed conservative treatment.? Through shared decision making she would like to proceed with this. ? We talked about continued conservative treatment and surgical intervention as far as the risk benefits complications alternatives surgical and nonsurgical treatment options.? At this point time understanding pts risks with surgery pt agrees to proceed with surgical intervention.? Once again? risk with surgery include but are not limited to make it better make it worse blood clot, heart attack, stroke, on the table, infection, injury to nerves or vessels, persistent pain, arthrofibrosis, implant failure.? Understanding these risks she agrees to proceed with surgical intervention consent was obtained in the office.? All questions answered. Procedure: Patient was seen and evaluated in the preoperative holding area.? Consent was reviewed and signed with patient with plan for left total knee arthroplasty.? All questions answered.? Correct extremities marked.? Patient seen and evaluated by the anesthesia department and once cleared for surgery was taken back to the operative suite.? Patient was placed into a supine position on the OR table.? All bony prominences were well-padded.? Patient was appropriately secured to the bed.? Patient underwent anesthesia per the anesthesia department.? Patient received spinal anesthesia and Long catheter was placed.? A nonsterile tourniquet was applied to the left thigh.? At this point in time a final timeout performed.? Patient received appropriate preoperative antibiotics and TXA. Next the the left lower extremity was then prepped and draped in standard orthopedic fashion.?Esmarch tourniquet was used exsanguinate the left lower extremity.? Tourniquet was insufflated to 250 mmHg. A standard anterior incision was made over midline of the knee.? Sharp scalpel excision through skin and subcutaneous tissue full-thickness skin flaps were made.? Fascia was elevated off of the extensor retinaculum was stable with medial parapatellar arthrotomy was then made.? The performed standard sequential releases.? Visualization of all 3 compartments was found to have eburnated bone in all 3 compartments with osteophyte formation.? Symmetrical joint space collapse and eburnated bone was appreciated. Next the the patella was then stuffed laterally and the knee was then flexed.? Jose was placed superiorly and medial around the anterior aspect of the femur this was freed of synovium and I subsequently then placed by 2 femur pins to establish my femur arrays for the Sloan robot.? These were then placed bicortically and? femur array was then appropriately secured with appropriate visualization.? Next attention was turned towards the tibial rays.? These were then drilled sequentially bicortically in parallel fashion and intraincisional.? I then placed my guide as well as my tibial array on in place.? This was appropriately secured and had excellent visualization with the Sloan robot.? Next the tibial checkpoint as well as femur checkpoint were then placed.? At this point time I then subsequently established my head center as well as my medial and lateral malleoli as well as my checkpoints.? Next utilizing standard Sloan technology I then mapped out the appropriate points and confirmation points around the femur as well as the tibia in standard fashion.? Once this was then done I then removed all osteophytes in preparation for dynamic testing.? All osteophytes were removed as well as I removed the ACL and PCL as this was significantly degenerative and plan for ultracongruent poly, anterior horn of the lateral meniscus was excised.? At this point time the knee was brought into full extension and we performed our standard evaluation of our gap balancing stressing? ligaments and extension as well as flexion appropriate adjustments were made to have appropriate gap balancing in both flexion and extension.? Made appropriate adjustments for appropriate gap balancing altering our femoral and tibial cuts.? We get a preoperative plan evaluating our implants which was a size 4 femur and a size 4 tibia.? Next we brought in the Sloan robot and sequentially made our femur cuts.? All? bony cuts were then removed.? Finally we made our tibial cut.? Once this was done a standard PCL retractor was then placed into this position I excised the medial and lateral meniscus.? The tibial cut was then subsequently removed all excess bony debris was removed.?? I then utilized a lamina corporate recruiter and remove the posterior osteophytes.? At this point time sized the tibia and confirmed this was a size 4.? I utilized our blunt probe to establish rotation of tibial implant using [employer] robot technology.? Once this was done I then placed my tibia size 4 trial in appropriate position and then subsequently placed tibial pins to hold this into place placed a size 9 mm poly as well as a size 4 femur which was appropriately impacted in place knee was then subsequently brought into extension.? Patient was found to achieve full extension and was balance varus valgus in extension as well as mid flexion and when brought up to flexion patient had excellent stability and appropriate gap balancing both medially and laterally. Once this was done I had excellent balance gaps in flexion and extension with varus and valgus stresses.? At this point I was satisfied with these implants I called open the implants and these were then verified and opened on the back table size 4 tibia, size 4 femur,? size 9 mm polythickness.? We did confirm appropriate gap balancing and stresses as well as alignment utilizing? Sloan and were satisfied with this plan.? ?At this point time with my trials in place I then towel clip the patella everted this made appropriate measurements subsequently utilizing freehand technique performed by patellar resurfacing this was confirmed to be appropriate resection and subsequently sized to be a 33 mm symmetric.?? drill peg guides were then clamped and appropriate position and appropriate position in the patella for appropriate tracking and parallel with the joint.? Pegs were drilled trial implant was placed and the knee was then subsequently ranged and found to have excellent patellar tracking.? Femur pegs were then drilled.?All checkpoints as well as guidepins and arrays were removed and appropriate counts made. Satisfied with our tibial placement rotation I then utilized the keel punch and prepped the tibia.? At this point time all of our trial implants were removed.? ? The wound bed? was thoroughly irrigated and dried and prepped for cementation.? Cement was mixed on the back table.? Once cement was ready this was then covered onto the tibia and the tibial baseplate was then impacted and all excess cement was removed.? Next the polyethylene was then impacted into place on the tibial baseplate.? Next cement was placed onto the femur as well as under the femur implants and impacted in to place and all excess cement was removed.? Knee was taken into full extension? to clear all excess cement was removed.? Warm saline was placed over the joint.? I then towel clip patella and dried for cementation. cemented the patella implant into place.? This was all clamped and the cement was allowed to cure.? Holding axial load pressure as well as maintaining full extension and the cement was allowed to cure and all excess cement was removed.? Thorough irrigation performed with pulse lavage.? I then placed periarticular injection while the cement was curing.? Once cured the knee was taken through range of motion and had excellent stability and gaps balances.? Tourniquet was then deflated.? Once tourniquet was deflated hemostasis satisfactory with electrocautery.? Next I then subsequently closed the capsule with Ethibond suture as well as a running strata fix suture.? Knee was then taken through range of motion 30 times.? Next the skin was then closed in layered fashion of running stratifix sutures of deep and subcutenous tissue and skin.? Patient was closed in flexion with jose for skin.? Incision was covered with Silverlon, ABDs soft roll and Alvin wrap.? Patient was then awakened from anesthesia and taken to PACU in stable condition. Disposition: Patient taken to PACU in stable condition will be admitted to the floor for pain control PT/OT weight-bear as tolerated left lower extremity dressing changes as needed, DVT prophylaxis.?Pain control. Patient will receive appropriate postoperative antibiotics. patient will be seen today by the internal medicine team for medical management.? Patient will follow up with the office in 2 weeks.? Patient understands agrees with current plan.? All questions answered.
--- NOTE | 2022-10-23 09:55 | XR_ITS ---
WS: [id number] Left knee, AP and lateral views, 10/23/2022 Clinical Data: postop TKA Comparison: AP knees, left knee, 09/09/2022 Findings: The left knee arthroplasty components are in good position. There is air in the joint space from rec ent surgery. XR/XR knee LT 1-2V [id number] Impression: Left knee arthroplasty. Kellgren-Rodolfo Classification:
--- NOTE | 2022-10-23 09:55 | P.PCN_ITS ---
PACU note Narrative: Patient taken PACU in stable condition recovering well pain controlled. Patient's spinal anesthesia was on and affect unable to assess motor or sensory postoperatively. Dressing on in place clean dry and intact toes are warm well- perfused brisk cap refill less than 2 seconds distal pulses are palpable Exam: awake Disposition: admitted
--- NOTE | 2022-10-23 11:25 | P.CONIM_ITS ---
Providers/Reason For Consult Consulting Physician/Specialty*: mary Escalonaist Reason for Consult*: Medical management Attending Physician: Braydon Lambert DO Primary Care Provider: Chung Loyola MD History of Present Illness History of Present Illness Oly Loza is a 62 year old female who underwent left total knee arthroplasty without complication this morning. I have been asked to see her in regards to medical management. Patient reports she does not have any significant problems other than migraine headaches and arthritis. She reports her pain is controlled currently. Review of Systems General: Reports: 10 or more systems reviewed and unremarkable except in HPI and below Card: Denies: chest pain Resp: Denies: dyspnea Medications/Allergies Home Medications Medication Instructions Recorded Confirmed Last Taken Type albuterol sulfate 90 mcg/actuation 1 inh inhalation QID 08/23/20 10/15/22 10/22/22 History aerosol inhaler (Ventolin HFA) benzonatate 100 mg capsule 100 mg PO PRN PRN Cough 08/23/20 10/15/22 Unknown History [id number]-olyjoejhahngf-iybtpoir 1 tab PO PRN PRN Migraine Headache 08/23/20 10/15/22 Unknown History 50 mg-325 mg-40 mg tablet diclofenac sodium 1 % topical gel 2 g topical QID 08/23/20 10/15/22 Unknown History sumatriptan succinate 100 mg tablet 100 mg PO Q2H PRN Migraine Headache 08/23/20 10/23/22 10/22/22 History tizanidine 4 mg tablet 4 mg PO Q8H PRN Muscle Spasm 08/23/20 10/15/22 Unknown History Hinged Knee Brace #1 ea 07/16/22 10/07/22 Unknown Rx naproxen sodium 220 mg tablet 220 mg PO BID PRN Pain 10/15/22 10/23/22 10/18/22 History sulfasalazine 500 mg tablet 1,000 mg PO BID 10/15/22 10/15/22 10/15/22 History Allergies Allergy/AdvReac Type Severity Reaction Status Date / Time amitriptyline Allergy ALGY-Rash Verified 10/07/22 13:49 Cephalosporins Allergy ALGY-Rash Verified 10/07/22 13:49 Penicillins Allergy ALGY-Rash Verified 10/07/22 13:49 tramadol Allergy ADR-Seizure Verified 10/07/22 13:49 PFSH Acute PFSH: Medical History (Updated 10/23/22 @ 11:29 by Paco Curtis MD) Degenerative joint disease of left knee DJD (degenerative joint disease) Migraine headache Surgical History (Updated 10/23/22 @ 11:27 by Paco Curtis MD) History of appendectomy History of cholecystectomy History of hysterectomy History of tubal ligation Family History (Updated 10/23/22 @ 11:27 by Paco Curtis MD) Other Stroke Social History (Updated 10/23/22 @ 11:27 by Paco Curtis MD) Smoking and tobacco status: never smoked Alcohol intake: never Vitals/I&O/Wt Last Vital Signs Temp 97 F L 10/23/22 09:55 Pulse 89 10/23/22 10:20 Resp 18 10/23/22 10:20 BP 122/75 10/23/22 10:20 Pulse Ox 97 10/23/22 10:20 O2 Del Method Room Air 10/23/22 10:36 10/22/22 10/23/22 10/23/22 22:59 06:59 14:59 Intake Total 1560 / 1560 Output Total 415 / 415 Balance 1145 / 1145 Physical Exam Narrative: General exam is white female, no distress HEENT: Pupils equally round. Oropharynx clear Neck is supple, no obvious thyromegaly or lymphadenopathy Cardiovascular regular rate and rhythm without murmur, no S3 or S4 Lungs clear no wheezing or crackles Abdomen is soft with positive bowel sounds. No obvious organomegaly exam deferred Extremities no cyanosis clubbing or edema, dressing present left knee Urinary Catheter Management: Long: Cath Placed During This Visit: yes Urinary Catheter Date of Insertion: 10/23/22 Urinary Catheter Time of Insertion: 07:52 Data 10/15/22 09:22 10/15/22 09:22 Other Labs: UA negative Previous nuclear stress test March 2021 no evidence of reversible ischemia EKG which I reviewed from October 15 demonstrated normal sinus rhythm, normal axis, no acute changes A&P Assessment and plan (1) Degenerative joint disease of left knee: Status post total knee arthroplasty Surgery is ordered appropriate pain control with ketorolac, acetaminophen, oxycodone and tramadol for breakthrough pain CBC and BMP tomorrow, to check for any postoperative anemia as well as check renal function on IV fluids in this patient who is going to be placed on anti- inflammatories Aspirin is going to be used for DVT prophylaxis (2) Migraine headache: On no preventative medications. Monitor for any headaches and should they occur consider sumatriptan (3) DJD (degenerative joint disease): Hold sulfasalazine as she will be getting anti-inflammatory IV in the form of ketorolac Plan Thank you for this consultation I will sign off at this time, but will be available for any questions or problems if they occur Diagnoses Degenerative joint disease of left knee M17.12 Migraine headache G43.909 DJD (degenerative joint disease) M19.90 Time Spent (min) 37
[2022-10-23] MEDS: ondansetron 2 mg/ML SDV 2 mL 4 MG IVP (11:39)
[2022-10-23] MEDS: scopolamine 1.5 Patch 1 PATCH TRANSDERMA (12:08)
--- NOTE | 2022-10-23 12:40 | ANE.PACU2 ---
Inpatient post-anesthesia follow up: Airway intact: Yes Vital signs: Temperature 97.0 F Pulse Rate 75 Respiratory Rate 18 Blood Pressure 151/84 Pulse Oximetry 99 Oxygen Delivery Me thod Room Air Oxygen Flow Rate Fraction of Inspir ed Oxygen Hydration adequate: Yes Nausea and vomiting: No Pain level: 1 Mental status: Baseline
[2022-10-23] MEDS: chlorhexidine gluconate 0.12% Btl 473 mL 30 ML MUCOUS MEM ×3 (12:49→21:45)
[2022-10-23] MEDS: oxyCODONE 5 mg IR Tab/Cap PO ×2 (13:42→18:25)
[2022-10-23] MEDS: clindamycin 900 MG/50 ML PREMIX 100 MG IV (15:25)
[2022-10-23] MEDS: iron polysaccharide complex 150 mg Capsule PO (17:54)
[2022-10-23] MEDS: calcium carbonate 500 mg Chew Tablet 1000 MG PO (17:54)
[2022-10-23] MEDS: docusate sodium 100 mg Capsule PO (17:54)
[2022-10-23] MEDS: lactated ringers 1,000 ML 100 ML IV (17:55)
[2022-10-23] MEDS: ketorolac 30 mg/mL INJ 15 MG IVP (17:55)
--- NOTE | 2022-10-23 18:54 | PC.NURSE ---
Patient has done very well today. Pain has been controlled. Patient has been up with therapy and tolerated very well. This nurse removed the maria catheter around 1530. Patient currently resting in bed with at bedside.
[2022-10-23] MEDS: HYDROmorphone 1 mg/mL INJ 1 mL 0.5 MG IVP (21:19)
[2022-10-24] VITALS (8 sets, daily range): BP systolic 117–148; BP diastolic 70–76; PULSE 64–69; RESP 15–18; TEMP 36.7–36.9; O2SAT 94–96
[2022-10-24] MEDS: oxyCODONE 5 mg IR Tab/Cap PO ×3 (00:32→12:26)
[2022-10-24] MEDS: acetaminophen 1,000 MG/100 ML PIGGYBACK 400 MG IV ×2 (00:34→08:06)
[2022-10-24] MEDS: clindamycin 900 MG/50 ML PREMIX 100 MG IV ×2 (00:52→10:22)
[2022-10-24] MEDS: HYDROmorphone 1 mg/mL INJ 1 mL 0.5 MG IVP (04:46)
[2022-10-24] MEDS: lactated ringers 1,000 ML 100 ML IV (05:15)
[2022-10-24 05:29] LABS: Basophils % 0.2 %; Eosinophils % 0.7 %; Hematocrit 30.2 % (37.0-47.0); Lymphocytes % 16.9 %; Mean Corpuscular HGB Conc 33.1 g/dL (30.0-36.0); Mean Corpuscular Hemoglobin 35.3 pg (28.0-34.0); Mean Corpuscular Volume 106.7 fl (81-99); Mean Platelet Volume 11.9 fL (7.4-10.4); Monocytes # 0.5 10^3/uL (0.2-0.9); Monocytes % 9.1 %; Neutrophils # 4.11 10^3/uL (1.8-7.7); Neutrophils % 72.9 %; Nucleated Red Blood Cells % 0 %; Platelet Count 131 10^3/cmm (130-400); Red Blood Count 2.83 10^6/uL (4.1-5.3); White Blood Count 5.6 10^3/uL (4.0-10.0)
[2022-10-24 05:46] LABS: Anion Gap 12.3 (5-19); Blood Urea Nitrogen 10 mg/dL (8-23); Calcium 8.6 mg/dL (8.5-10.5); Carbon Dioxide 25 mmol/L (22-29); Chloride 104 mmol/L (98-107); Glomerular Filtration Rate 101.6 mL/min (90-130); Glucose 98 mg/dL (65-115); Osmolality Calculated 285 mOsm/kg (285-295); Potassium 3.3 mmol/L (3.5-5.1); Sodium 138 mmol/L (136-145)
[2022-10-24] MEDS: ondansetron 2 mg/ML SDV 2 mL 4 MG IVP (06:31)
[2022-10-24] MEDS: calcium carbonate 500 mg Chew Tablet 1000 MG PO (08:09)
[2022-10-24] MEDS: iron polysaccharide complex 150 mg Capsule PO (08:12)
[2022-10-24] MEDS: chlorhexidine gluconate 0.12% Btl 473 mL 30 ML MUCOUS MEM (08:12)
[2022-10-24] MEDS: potassium chloride ER 20 mEq Tablet 40 MEQ PO (08:12)
[2022-10-24] MEDS: multivitamin therapeutic Tablet 1 TAB PO (08:12)
[2022-10-24] MEDS: docusate sodium 100 mg Capsule PO (08:12)
[2022-10-24] MEDS: mupirocin oint 22 gm 1 APPLIC NASAL (08:12)
[2022-10-24] MEDS: cholecalciferol (vitamin D3) 1,000 unit Tablet 1000 UNIT PO (08:12)
[2022-10-24] MEDS: aspirin 325 mg EC Tablet PO (08:12)
[2022-10-24] MEDS: vancomycin 1,500 MG/300 ML PIGGYBACK 200 MG IV (08:12)
[2022-10-24] MEDS: metoclopramide 5 mg/mL SDV 2 mL 10 MG IV (08:26)
--- NOTE | 2022-10-24 08:40 | PM.PN ---
Subjective Subjective: Some knee pain but overall controlled. No other complaints. Medications: Reviewed: Yes Vitals/I&O/Wt Last Vital Signs Temp 98.4 F 10/24/22 08:00 Pulse 68 10/24/22 08:00 Resp 15 10/24/22 08:00 BP 129/70 10/24/22 08:00 Pulse Ox 94 10/24/22 08:00 O2 Del Method Room Air 10/24/22 07:46 10/23/22 10/24/22 10/24/22 22:59 06:59 14:59 Intake Total 380 / 2060 1470 / 3530 278.333 / 278.333 Output Total 1000 / 1415 350 / 1765 Balance -620 / 645 1120 / 1765 278.333 / 278.333 Physical Exam Narrative: General exam no distress Cardiovascular regular rate and rhythm without murmur, no S3 or S4 Lungs clear Abdomen is soft with positive bowel sounds. No obvious organomegaly Extremities no cyanosis clubbing or edema, dressing present left knee Urinary Catheter Management: Long: Cath Placed During This Visit: yes, but has since been removed by the nurse Reason for Continuing Indwelling Catheter: Decision to DC Catheter Urinary Catheter Date of Insertion: 10/23/22 Urinary Catheter Time of Insertion: 07:52 Date Urinary Catheter Removed: 10/23/22 Time Urinary Catheter Discontinued: 15:34 Data 10/24/22 04:37 10/24/22 04:37 A&P Assessment and plan (1) Degenerative joint disease of left knee: Status post total knee arthroplasty Surgery is ordered appropriate pain control with ketorolac, acetaminophen, oxycodone and tramadol for breakthrough pain Aspirin is being used for DVT prophylaxis (2) Migraine headache: On no preventative medications. Monitor for any headaches and should they occur consider sumatriptan (3) DJD (degenerative joint disease): Hold sulfasalazine as she will be getting anti-inflammatory IV in the form of ketorolac Plan Hypokalemia. Supplement today. Acute postoperative blood loss anemia. Mild. Thank you for this consultation Reduce fluids Overall doing well. No medical contraindications to discharge Attestations Medical Necessity Statement*: As per primary Diagnoses Degenerative joint disease of left knee M17.12 Migraine headache G43.909 DJD (degenerative joint disease) M19.90
--- NOTE | 2022-10-24 13:40 | PM.PN ---
Subjective Subjective: Patient is seen in her room. She feels that she is doing well following her total knee arthroplasty. She has no significant complaints, and wishes to be discharged home today. Medications: Reviewed: Yes Vitals/I&O/Wt Last Vital Signs Temp 98.5 F 10/24/22 12:00 Pulse 64 10/24/22 12:00 Resp 15 10/24/22 12:26 BP 148/76 10/24/22 12:00 Pulse Ox 96 10/24/22 12:26 O2 Del Method Room Air 10/24/22 07:46 10/23/22 10/24/22 10/24/22 22:59 06:59 14:59 Intake Total 380 / 2060 1470 / 3530 888.333 / 888.333 Output Total 1000 / 1415 350 / 1765 Balance -620 / 645 1120 / 1765 888.333 / 888.333 Physical Exam Narrative: Patient is seen in her room. Her is with her. Alvin wrap and soft roll are removed from the patient's left lower extremity. OpSite dressing remains intact, and there is minimal to no bleeding noted on the dressing. She is neurologically intact with no evidence of DVT. She has been ambulating independently with physical therapy. Urinary Catheter Management: Long: Cath Placed During This Visit: yes, but has since been removed by the nurse Reason for Continuing Indwelling Catheter: Decision to DC Catheter Urinary Catheter Date of Insertion: 10/23/22 Urinary Catheter Time of Insertion: 07:52 Date Urinary Catheter Removed: 10/23/22 Time Urinary Catheter Discontinued: 15:34 Data 10/24/22 04:37 10/24/22 04:37 A&P Assessment and plan (1) Degenerative joint disease of left knee: Patient underwent uneventful left total knee arthroplasty. She is doing well following this and is working with physical therapy. She is felt to be independent and safe for discharge to home. There is no evidence of DVT. Her OpSite dressing is left in place. She will follow-up as scheduled and will be given aspirin twice daily for DVT prophylaxis. She will follow-up with Dr. Lambert as previously scheduled. (2) History of total left knee replacement: Attestations Medical Necessity Statement*: Patient will be discharged home to follow-up. Coding Level of Care Code Acute Code for [facility] [place] Diagnoses Degenerative joint disease of left knee M17.12 History of total left knee replacement Z96.656
--- NOTE | 2022-10-24 14:03 | P.DS_ITS ---
Discharge Providers Date of Admission: 10/23/22 10:00 Date of Discharge: October 24, 2022 Attending Provider at Admission: Braydon Labmert DO Attending Provider at Discharge: Braydon Lambert DO Consults: Internal medicine?Dr. Curtis Primary Care Provider: Chung Loyola MD Diagnoses at Discharge Discharge Diagnosis (1) Degenerative joint disease of left knee: Status: Resolved (2) History of total left knee replacement: Status: Acute Reason for Visit Reason for Visit: M17.12 Brief History: Left knee degenerative joint disease?patient underwent left total knee arthroplasty Hospital Course Hospital Course Patient presented to the preoperative holding area with plan for left total knee arthroplasty after patient has been worked up in the outpatient setting for failed conservative treatment of left knee degenerative joint disease. Once cleared by anesthesia for surgery patient subsequently was taken back to the operative suite she underwent spinal anesthesia and then subsequently underwent a left total knee arthroplasty. Procedure was performed without any complications patient was taken to PACU in stable condition patient recovered well in PACU and then was admitted to the floor postoperatively internal medicine was consulted and on board for medical management and assistance with care. Patient received appropriate PT/OT, postoperative antibiotics, postoperative TXA, pain control, postoperative DVT prophylaxis. Elevation and ice. Patient encouraged for knee range of motion allowed weightbearing as tolerated to the left lower extremity. Dressing was changed as needed her labs were monitored daily. Patient recovered well postoperatively and worked well and progressed well with therapy. It was determined on postoperative day 1 the patient was stable for discharge from an orthopedic standpoint as well as internal medicine standpoint. Patient was comfortable with discharge and plan was discharged home. Patient received appropriate discharge instruction as well as pain medication and DVT prophylaxis postoperatively. Given appropriate instructions for her dressing management. Patient will follow-up with Dr. Lambert in the office in 2 weeks. All questions answered. Understand if there is any issues questions or concerns and contact the office. Physical Exam Narrative: I was out of town day of discharge?physical examination by my partner Dr. Rae day of discharge 10/24/2022: patient is seen in her room.? Her is with her.? Alvin wrap and soft roll are removed from the patient's left lower extremity.? OpSite dressing remains intact, and there is minimal to no bleeding noted on the dressing.? She is neurologically intact with no evidence of DVT.? She has been ambulating independently with physical therapy. Urinary Catheter Management: Long: Cath Placed During This Visit: yes, but has since been removed by the nurse Reason for Continuing Indwelling Catheter: Decision to DC Catheter Urinary Catheter Date of Insertion: 10/23/22 Urinary Catheter Time of Insertion: 07:52 Date Urinary Catheter Removed: 10/23/22 Time Urinary Catheter Discontinued: 15:34 Discharge Data Studies Completed and Pending Completed Studies During Hospitalization Category Date Time Status XR knee LT 1-2V [id number] Routine Exams 10/23/22 09:55 Completed Radiology Impressions Knee X-Ray 10/23/22 09:55 Impression: Left knee arthroplasty. Kellgren-Rodolfo Classification: Laboratory Results WBC 5.6 10^3/uL (4.0-10.0) 10/24/22 04:37 Corrected WBC Cancelled 10/15/22 09:22 RBC 2.83 10^6/uL (4.1-5.3) L 10/24/22 04:37 Hgb 10.0 g/dL (11.5-15.3) L 10/24/22 04:37 Hct 30.2 % (37.0-47.0) L 10/24/22 04:37 MCV 106.7 fl (81-99) H 10/24/22 04:37 MCH 35.3 pg (28.0-34.0) H 10/24/22 04:37 MCHC 33.1 g/dL (30.0-36.0) 10/24/22 04:37 RDW 12.0 % (12.1-15.1) L 10/24/22 04:37 Plt Count 131 10^3/cmm (130-400) 10/24/22 04:37 MPV 11.9 fL (7.4-10.4) H 10/24/22 04:37 Neut % (Auto) 72.9 % 10/24/22 04:37 Lymph % (Auto) 16.9 % 10/24/22 04:37 Harris % (Auto) 9.1 % 10/24/22 04:37 Eos % (Auto) 0.7 % 10/24/22 04:37 Baso % (Auto) 0.2 % 10/24/22 04:37 Neut # (Auto) 4.11 10^3/uL (1.8-7.7) 10/24/22 04:37 Lymph # (Auto) 1.0 10^3/uL (0.8-4.8) 10/24/22 04:37 Harris # (Auto) 0.5 10^3/uL (0.2-0.9) 10/24/22 04:37 Eos # (Auto) 0.0 10^3/uL (0.0-0.8) 10/24/22 04:37 Baso # (Auto) 0.0 10^3/uL (0.0-0.1) 10/24/22 04:37 Nucleated RBC % (auto) 0 % 10/24/22 04:37 Total Counted Cancelled 10/15/22 09:22 Atypical Lymphs % Cancelled 10/15/22 09:22 Absolute Neutrophils Cancelled 10/15/22 09:22 Segmented Neutrophils Cancelled 10/15/22 09:22 Abs Segm Neuts (Man) Cancelled 10/15/22 09:22 Band Neutrophils Cancelled 10/15/22 09:22 Abs Band Neuts (Man) Cancelled 10/15/22 09:22 Absolute Lymphocytes Cancelled 10/15/22 09:22 Lymphocytes (Manual) Cancelled 10/15/22 09:22 Monocytes (Manual) Cancelled 10/15/22 09:22 Absolute Monocytes Cancelled 10/15/22 09:22 Eosinophils (Manual) Cancelled 10/15/22 09:22 Absolute Eosinophils Cancelled 10/15/22 09:22 Basophils (Manual) Cancelled 10/15/22 09:22 Absolute Basophils Cancelled 10/15/22 09:22 Metamyelocytes Cancelled 10/15/22 09:22 Myelocytes Cancelled 10/15/22 09:22 Promyelocytes Cancelled 10/15/22 09:22 Nucleated RBCs Cancelled 10/15/22 09:22 Nucleated RBCs # 0.0 /100WBC 10/24/22 04:37 Pathologist Review Cancelled 10/15/22 09:22 Hypersegmented Polys Cancelled 10/15/22 09:22 Blast Cells Cancelled 10/15/22 09:22 Smudge Cells Cancelled 10/15/22 09:22 Toxic Granulation Cancelled 10/15/22 09:22 Toxic Vacuolation Cancelled 10/15/22 09:22 Dohle Bodies Cancelled 10/15/22 09:22 Marilou Rods Cancelled 10/15/22 09:22 Platelet Estimate Cancelled 10/15/22 09:22 Giant Platelets Cancelled 10/15/22 09:22 Polychromasia Cancelled 10/15/22 09:22 Hypochromasia Cancelled 10/15/22 09:22 Poikilocytosis Cancelled 10/15/22 09:22 Basophilic Stippling Cancelled 10/15/22 09:22 Anisocytosis Cancelled 10/15/22 09:22 Microcytosis Cancelled 10/15/22 09:22 Macrocytosis Cancelled 10/15/22 09:22 Spherocytes Cancelled 10/15/22 09:22 Sickle Cells Cancelled 10/15/22 09:22 Target Cells Cancelled 10/15/22 09:22 Tear Drop Cells Cancelled 10/15/22 09:22 Ovalocytes Cancelled 10/15/22 09:22 Stomatocytes Cancelled 10/15/22 09:22 Helmet Cells Cancelled 10/15/22 09:22 Babb-Volta Bodies Cancelled 10/15/22 09:22 Cropwell Cells Cancelled 10/15/22 09:22 Crenated Cell Cancelled 10/15/22 09:22 Acanthocytes (Spur) Cancelled 10/15/22 09:22 Rouleaux Cancelled 10/15/22 09:22 Schistocytes Cancelled 10/15/22 09:22 RBC Morph Comment Cancelled 10/15/22 09:22 Sodium 138 mmol/L (136-145) 10/24/22 04:37 Potassium 3.3 mmol/L (3.5-5.1) L 10/24/22 04:37 Chloride 104 mmol/L (98-107) 10/24/22 04:37 Carbon Dioxide 25 mmol/L (22-29) 10/24/22 04:37 Anion Gap 12.3 (5-19) 10/24/22 04:37 BUN 10 mg/dL (8-23) 10/24/22 04:37 Creatinine 0.6 mg/dL (0.5-0.9) 10/24/22 04:37 GFR Calculation 101.6 mL/min (90-130) 10/24/22 04:37 Glucose 98 mg/dL (65-115) 10/24/22 04:37 Calculated Osmolality 285 mOsm/kg (285-295) 10/24/22 04:37 Calcium 8.6 mg/dL (8.5-10.5) 10/24/22 04:37 Urine Color Yellow (Yellow) 10/15/22 09:25 Urine Appearance Clear (CLEAR) 10/15/22 09:25 Urine pH 6 (5-7) 10/15/22 09:25 Ur Specific [place] 1.015 (1.005-1.030) 10/15/22 09:25 Urine Protein Neg (Negative) 10/15/22 09:25 Urine Glucose (UA) Norm (Normal) 10/15/22 09:25 Urine Ketones Negative (Negative) 10/15/22 09:25 Urine Blood Neg (Negative) 10/15/22 09:25 Urine Nitrate Negative (Negative) 10/15/22 09:25 Urine Bilirubin Neg (Negative) 10/15/22 09:25 Urine Urobilinogen Norm mg/dL (Negative) 10/15/22 09:25 Ur Leukocyte Esterase Negative (Negative) 10/15/22 09:25 Vitals Last Vital Signs Temp 98.5 F 10/24/22 12:00 Pulse 64 10/24/22 12:00 Resp 15 10/24/22 14:28 BP 148/76 10/24/22 12:00 Pulse Ox 96 10/24/22 14:28 O2 Del Method Room Air 10/24/22 07:46 Discharge Plan Discharge Patient Disposition: Home Health Service Condition: Stable Prescriptions: New Percocet 5-325 mg tablet 1 tab PO Q6H PRN (Reason: pain) 7 Days Qty: 28 0RF Colace 100 mg capsule 100 mg PO DAILY PRN (Reason: constipation) 10 Days Qty: 10 0RF ondansetron 4 mg tablet,disintegrating 4 mg PO DAILY 5 Days Qty: 5 0RF calcium carbonate-vitamin D3 600 mg-10 mcg (400 unit) Tablet 1 ea PO BID 30 Days Qty: 60 0RF aspirin 325 mg Tablet,Delayed Release (Dr/Ec) 325 mg PO BID 14 Days Qty: 28 0RF Continued tizanidine 4 mg Tablet 4 mg PO Q8H PRN (Reason: Muscle Spasm) sumatriptan succinate 100 mg Tablet 100 mg PO Q2H PRN (Reason: Migraine Headache) [id number] 50-325-40 mg tablet 1 tab PO PRN PRN (Reason: Migraine Headache) benzonatate 100 mg capsule 100 mg PO PRN PRN (Reason: Cough) albuterol sulfate [Ventolin HFA] 90 mcg/actuation Hfa Aerosol Inhaler 1 inh INHALATION QID diclofenac sodium 1 % Gel 2 g TOPICAL QID sulfasalazine 500 mg tablet 1,000 mg PO BID naproxen sodium 220 mg Tablet 220 mg PO BID PRN (Reason: Pain) Discontinued (DME) Hinged Knee Brace See Rx Instructions .Route .MEDSUPPLY Qty: 1 0RF Rx Instructions: As directed Discharge Orders: Discharge Order (Routine); Ordered 10/24/22 Ordered By: Trina Lassiter Ambulatory Orders: Physical Therapy Eval and Treat Outpatient (Order) Timeframe: 3 Days Facility: [facility] - Location: Physical Therapy Ordered By: Paco Curtis Referrals: Chung Loyola MD [Primary Care Provider] - 10/30/22 1:20 pm Braydon Lambert DO [Physician] - 11/11/22 2:45 pm Discharge Diet: Advance as tolerated and Usual diet Discharge Activity: Increase activity as tolerated, Use walker/crutches as instructed and As per PT/OT instructions Patient Instructions: Oxycodone/Acetaminophen (By mouth), Aspirin (By mouth), Laxative, Stool Softeners (By mouth), Ondansetron (By mouth), Knee Replacement (GEN), Joint Replacement Stoplight, Opioid Safety Activity Restrictions/Additional Instructions: Orthopedic discharge instructions: Patient is allowed to weight-bear as tolerated to the left lower extremity Encourage knee range of motion as tolerated goals of 0-90 at 2 weeks Ice and elevate as needed for pain and swelling Leave dressing on in place for 72 hours may remove Alvin wrap and padding okay to perform sponge baths. After 1 week remove the bandage Silverlon dressing and okay to shower and rinse incision with warm soapy water, pat dry and redress with a dry dressing. Take pain medication as prescribed Take antinausea medication as needed Supplement with Citracal vitamin D for bone health and healing Take aspirin 325 mg twice daily for blood clot prevention for 2 weeks Follow-up with Dr. Lambert in the office in 2 weeks Contact the office for any questions or concerns Discharge Attestations Time Spent in Discharge Care*: less than 30 min Quality Metrics Clinical Quality Measures [ No reported AMI, CVA or VTE this stay] Coding Level of Care Code Acute Code for [facility] Diagnoses Degenerative joint disease of left knee M17.12 History of total left knee replacement Z96.652
== END 2022-10-24 14:29 | disposition home health service (06) ==
LOC: MEDSURG 10:15
PROVIDERS: Admitting Provider Student in an Organized Health Care Education/Training Program; PCP Family Medicine; Visit Provider Student in an Organized Health Care Education/Training Program
PROC: 8E0Y0CZ Robotic Assisted Procedure of Lower Extremity, Open Approach (ICD-10-PCS; CPT 27447; principal; 2022-10-23 07:25)
DX: M17.12 Unilateral primary osteoarthritis, left knee (principal); D62 Acute posthemorrhagic anemia; E87.6 Hypokalemia; G43.909 Migraine, unspecified, not intractable, without status migrainosus; J45.909 Unspecified asthma, uncomplicated; K21.9 Gastro-esophageal reflux disease without esophagitis; Z79.899 Other long term (current) drug therapy; Z88.0 Allergy status to penicillin
CPT/HCPCS: 27447; 51702; 73560; 80048; 81003; 85025; 97110; 97116; 97161; 97165; 97530; C1776; G0378; J0131; J0171; J1170; J1885; J2250; J2405; J2704; J2765; J2795; J3370; J3490; J7030; J7120

== ENCOUNTER → 2022-11-11 15:06 | Outpatient (BNVA) | payer OTHER, SELFPAY | PROVIDERS: PCP Family Medicine; Visit Provider Student in an Organized Health Care Education/Training Program | DX: Z96.652 Presence of left artificial knee joint (principal); N39.0 Urinary tract infection, site not specified | CPT/HCPCS: 73560; 73565 ==

== ENCOUNTER → 2022-11-27 11:23 | Outpatient (BNVA) | payer OTHER, SELFPAY | PROVIDERS: Visit Provider Nurse Practitioner Family | DX: Z96.652 Presence of left artificial knee joint (principal); W19.XXXA Unspecified fall, initial encounter | CPT/HCPCS: 73560; 73565 ==

== ENCOUNTER 2022-12-04 11:09 | Outpatient (RCR) | payer OTHER, SELFPAY | END 2022-12-04 23:59 | disposition home or self-care (01) | LOC: SPT 11:09 | PROVIDERS: PCP Family Medicine; Visit Provider Student in an Organized Health Care Education/Training Program | DX: Z47.1 Aftercare following joint replacement surgery (principal); Z96.652 Presence of left artificial knee joint | CPT/HCPCS: 97161 ==

== ENCOUNTER 2022-12-05 06:00 | Outpatient (RCR) | payer OTHER, SELFPAY | END 2023-01-03 23:59 | disposition home or self-care (01) | LOC: SPT 06:00 | PROVIDERS: PCP Family Medicine; Visit Provider Student in an Organized Health Care Education/Training Program | DX: Z47.1 Aftercare following joint replacement surgery (principal); Z96.652 Presence of left artificial knee joint | CPT/HCPCS: 97110 ==

== ENCOUNTER 2023-01-04 01:00 | Outpatient (RCR) | payer OTHER, SELFPAY | END 2023-02-03 23:59 | disposition home or self-care (01) | LOC: SPT 01:00 | PROVIDERS: PCP Family Medicine; Visit Provider Student in an Organized Health Care Education/Training Program | DX: Z47.1 Aftercare following joint replacement surgery (principal); Z96.652 Presence of left artificial knee joint | CPT/HCPCS: 97110 ==

== ENCOUNTER → 2023-01-13 13:07 | Outpatient (BNVA) | payer OTHER, SELFPAY | PROVIDERS: PCP Family Medicine; Visit Provider Student in an Organized Health Care Education/Training Program | DX: Z96.652 Presence of left artificial knee joint (principal) | CPT/HCPCS: 73560; 73565 ==

== ENCOUNTER 2023-02-04 06:00 | Outpatient (RCR) | payer OTHER, SELFPAY | END 2023-02-21 23:59 | disposition home or self-care (01) | LOC: SPT 06:00 | PROVIDERS: PCP Family Medicine; Visit Provider Student in an Organized Health Care Education/Training Program | DX: Z47.1 Aftercare following joint replacement surgery (principal); Z96.652 Presence of left artificial knee joint | CPT/HCPCS: 97110 ==

== ENCOUNTER 2023-02-13 05:51 | Emergency (ER) | payer OTHER, SELFPAY ==
[2023-02-13 05:52] VITALS: BP 133/81; PULSE 108; RESP 20; TEMP 37; O2SAT 98; BMI 22.3
--- NOTE | 2023-02-13 06:04 | ED_ITS ---
HPI - Altered Mental Status General: Chief Complaint: Altered Mental Status Stated Complaint: UTI Time Seen by Provider: 02/13/23 06:03 History of Present Illness: Ms Loza is a 63-year-old lady with history of headaches, possible medication related seizures, recent pneumonia presenting the emergency department for generalized illness and mental status change. She has been feeling ill for approximately 1 week. She was seen and diagnosed with pneumonia and given steroids and antibiotics however has continued to worsen. She had just had dark concentrated urine. This morning at about 4 AM noticed that she was having a seizure type episode with mental status change and loss of urinary continence. Overall course of symptoms has worsened. Moderate to severe. No other specific changes in health, exacerbating, or alleviating factors identified. Onset (ago): day(s) Severity: severe Associated symptoms: Reports other Review of Systems General: Reports: 10 or more systems reviewed and unremarkable except in HPI and below PFSH ED PFSH: Medical History Degenerative joint disease of left knee DJD (degenerative joint disease) Migraine headache Surgical History History of appendectomy History of cholecystectomy History of hysterectomy History of tubal ligation Family History Other Stroke Social History Smoking and tobacco status: never smoked Alcohol intake: never Physical Exam Const: COMMON NORMALS: alert GENERAL APPEARANCE: cooperative and well developed HENMT: COMMON NORMALS: normocephalic and atraumatic HEAD & SCALP: normocephalic and atraumatic THROAT: posterior oropharynx normal Eye: COMMON NORMALS: conjunctivae normal CONJUNCTIVA: Yes conjunctivae normal SCLERA: sclerae normal Neck/C-Spine: COMMON NORMALS: supple GENERAL: Yes trachea midline Resp: COMMON NORMALS: clear to auscultation bilaterally EFFORT & INSPECTION: Yes able to speak in complete sentences AUSCULTATION: clear to auscultation bilaterally Cardio: COMMON NORMALS: regular rhythm RATE: tachycardic RHYTHM: regular rhythm GI: COMMON NORMALS: Soft to palpation PALPATION: Yes Soft to palpation, Yes Tenderness to palpation present (GI), No Guarding due to palpation present (GI) and No Rigid due to palpation Extremity: GENERAL: Yes normal exam except as noted and No edema Neuro: COMMON NORMALS: CN's II-XII intact bilaterally, moves all extremities, no focal motor deficits and no sensory deficits noted SENSORIUM/ORIENTATION: Yes alert and No Orientation impaired OTHER: Generalized confusion, at times performs tasks inappropriate side, limited concentration. Psych: COMMON NORMALS: cooperative Course Vital Signs: Vital signs: Vital Signs Temperature 98.6 F 02/13/23 05:52 Pulse Rate 94 02/13/23 09:45 Respiratory Rate 22 H 02/13/23 09:45 Blood Pressure 109/65 02/13/23 09:45 Pulse Oximetry 98 02/13/23 09:45 Oxygen Delivery Me thod Room Air 02/13/23 07:03 MDM - Altered Mental Status Medical Decision Making 63-year-old lady presenting with altered mental status and possible UTI with recent diagnosis of pneumonia. Moderately ill on exam however nontoxic. Some abnormal neurologic exam though no obvious focality. Not a tPA candidate. EKG demonstrates sinus tachycardia with occasional PVCs, no stemi. Labs with leukopenia, normal hemoglobin, thrombocytopenia which is new for the patient. Metabolic panel demonstrates significant abnormalities with marked SUSANNAH, lactic acidosis, transaminitis, positive range 2-hour delta troponin. Urinalysis with possible UTI. Chest x-ray with no lobar consolidation or pneumothorax but no evidence of acute stroke or hemorrhage on CT head. CT abdomen pelvis without clear abnormality to explain symptoms, left lower lobe infiltrate with bronchial wall thickening present. Patient treated with 30 cc/kg fluid bolus, Ativan for seizure, broad-spectrum antibiotics, Keppra. Consulted hospital service however patient exceeds the level of care and therefore we will look for transfer. Patient transfered to [facility] ER to ER after discussion with hospitalist in guarded condition for higher level of care. Suspect infectious etiology with multisystem organ findings. Possible gram-negative bacteremia. Possible central nervous system involvement however given platelet count and absence of meningismus I believe that risk exceeds benefit currently of lumbar puncture. Medical Records I reviewed the patient's medical records. Lab Data I reviewed the patient's lab results. 02/13/23 05:55 02/13/23 05:55 Radiology Impressions Abdomen/Pelvis CT 02/13/23 06:12 IMPRESSION: No acute abdominal or pelvic abnormality is appreciated. Left lower lobe infiltrate with bronchial wall thickening. Splenomegaly with granulomatous disease Head CT 02/13/23 06:12 IMPRESSION: No acute intracranial abnormality. Laboratory Results WBC 3.5 10^3/uL (4.0-10.0) L 02/13/23 05:55 RBC 3.36 10^6/uL (4.1-5.3) L 02/13/23 05:55 Hgb 12.2 g/dL (11.5-15.3) 02/13/23 05:55 Hct 34.2 % (37.0-47.0) L 02/13/23 05:55 MCV 101.8 fl (81-99) H 02/13/23 05:55 MCH 36.3 pg (28.0-34.0) H 02/13/23 05:55 MCHC 35.7 g/dL (30.0-36.0) 02/13/23 05:55 RDW 12.4 % (12.1-15.1) 02/13/23 05:55 Plt Count 35 10^3/cmm (130-400) L 02/13/23 05:55 MPV Not Reportable 02/13/23 05:55 Neut % (Auto) 83.5 % 02/13/23 05:55 Lymph % (Auto) 9.7 % 02/13/23 05:55 [place] % (Auto) 5.4 % 02/13/23 05:55 Eos % (Auto) 0.0 % 02/13/23 05:55 Baso % (Auto) 0.3 % 02/13/23 05:55 Neut # (Auto) 2.93 10^3/uL (1.8-7.7) 02/13/23 05:55 Lymph # (Auto) 0.3 10^3/uL (0.8-4.8) L 02/13/23 05:55 [place] # (Auto) 0.2 10^3/uL (0.2-0.9) 02/13/23 05:55 Eos # (Auto) 0.0 10^3/uL (0.0-0.8) 02/13/23 05:55 Baso # (Auto) 0.0 10^3/uL (0.0-0.1) 02/13/23 05:55 Nucleated RBC % (auto) 0 % 02/13/23 05:55 Nucleated RBCs # 0.0 /100WBC 02/13/23 05:55 Haptoglobin 83.0 mg/L (30-200) 02/13/23 05:55 PT 16.50 SECONDS (12.1-14.9) H 02/13/23 05:55 INR 1.29 (0.8-1.2) H 02/13/23 05:55 APTT 48.5 SECONDS (23.9-36.7) H 02/13/23 05:55 Fibrinogen 377 mg/dL (174-498) 02/13/23 05:55 Specimen Type Arterial 02/13/23 06:25 Sample Site Radial, left 02/13/23 06:25 ABG pH 7.39 (7.35-7.45) 02/13/23 06:25 ABG pCO2 18.2 mmHg (35-45) L* 02/13/23 06:25 ABG pO2 96.1 mmHg (80.0-100.0) 02/13/23 06:25 ABG HCO3 11.1 mmol/L (22-26) L 02/13/23 06:25 ABG Base Excess -11.7 mmol/L (-2.0-2.0) L 02/13/23 06:25 Mauricio Test Pos 02/13/23 06:25 Hematocrit 35.3 % (37-47) L 02/13/23 06:25 O2 Delivery Device None 02/13/23 06:25 FiO2 21.0 % 02/13/23 06:25 Radio Engineer ID [email or web address] 02/13/23 06:25 Sodium 133 mmol/L (136-145) L 02/13/23 05:55 Potassium 3.8 mmol/L (3.5-5.1) 02/13/23 05:55 Chloride 96 mmol/L (98-107) L 02/13/23 05:55 Carbon Dioxide 11 mmol/L (22-29) L 02/13/23 05:55 Anion Gap 29.8 (5-19) H 02/13/23 05:55 BUN 80 mg/dL (8-23) H 02/13/23 05:55 Creatinine 7.2 mg/dL (0.5-0.9) H* 02/13/23 05:55 GFR Calculation 5.8 mL/min (90-130) L 02/13/23 05:55 Glucose 132 mg/dL (65-115) H 02/13/23 05:55 Calculated Osmolality 302 mOsm/kg (285-295) H 02/13/23 05:55 Lactic Acid 2.4 mmol/L (0.5-2.2) H 02/13/23 06:30 Lactic Acid (Sepsis) 3.0 mmol/L (0.5-2.2) H 02/13/23 09:33 Calcium 8.1 mg/dL (8.5-10.5) L 02/13/23 05:55 Magnesium 1.6 mg/dL (1.7-2.3) L 02/13/23 05:55 Total Bilirubin 1.0 mg/dL (0.15-1.2) 02/13/23 05:55 AST 86 U/L (0-32) H 02/13/23 05:55 ALT 37 U/L (0-33) H 02/13/23 05:55 Alkaline Phosphatase 437 U/L (35-105) H 02/13/23 05:55 Creatine Kinase 71 U/L (26-192) 02/13/23 05:55 Troponin T Baseline 36 ng/L (0-10) H 02/13/23 05:55 Troponin T 120 Minute 56.58 ng/L (0-10) H 02/13/23 08:40 Delta Troponin T 20.58 ABS# (0-10) H* 02/13/23 08:40 C-Reactive Protein 182.4 mg/L (0.0-4.9) H 02/13/23 05:55 Total Protein 6.1 g/dL (6.6-8.7) L 02/13/23 05:55 Albumin 3.6 g/dL (3.5-5.2) 02/13/23 05:55 Globulin 2.5 g/dL (1.3-4.6) 02/13/23 05:55 Procalcitonin 1.21 ng/mL (0-0.5) H 02/13/23 05:55 TSH 1.56 uIU/mL (0.27-4.20) 02/13/23 05:55 Urine Color Yellow (Yellow) 02/13/23 05:55 Urine Appearance Hazy (CLEAR) A 02/13/23 05:55 Urine pH 5 (5-7) 02/13/23 05:55 Ur Specific Sod 1.010 (1.005-1.030) 02/13/23 05:55 Urine Protein 3+ (Negative) H 02/13/23 05:55 Urine Glucose (UA) Trace (Normal) H 02/13/23 05:55 Urine Ketones Negative (Negative) 02/13/23 05:55 Urine Blood 3+ (Negative) H 02/13/23 05:55 Urine Nitrate Negative (Negative) 02/13/23 05:55 Urine Bilirubin 1+ (Negative) H 02/13/23 05:55 Urine Urobilinogen Norm mg/dL (Negative) 02/13/23 05:55 Ur Leukocyte Esterase Negative (Negative) 02/13/23 05:55 Urine RBC 40-50 /hpf (0-2) H 02/13/23 05:55 Urine WBC 10-15 /hpf (0-5) H 02/13/23 05:55 Ur Squamous Epith Cells 5-10 /hpf (0-5) H 02/13/23 05:55 Amorphous Sediment Not Reportable 02/13/23 05:55 Urine Bacteria 1+ /hpf (NONE) H 02/13/23 05:55 Hyaline Casts 0-4 /lpf H 02/13/23 05:55 Coarse Granular Casts 15-25 /lpf H 02/13/23 05:55 Urine Mucus Trace /hpf 02/13/23 05:55 Salicylates 0.4 mg/dL (3-10) L 02/13/23 05:55 Acetaminophen < 5.0 ug/mL (10-30) L 02/13/23 05:55 Ethyl Alcohol < 10 mg/dL (0-10) 02/13/23 05:55 Lyme Ab (Western Blot) <0.90 index 02/13/23 09:43 Critical Care Time Critical Care Time: Critical Care Time: Yes Total Critical Care Time: 80 Attestation: Due to a high probability of clinically significant, possibly life threatening deterioration, the patient required my highest level of attention and p reparedness to intervene emergently and I personally spent this critical care time directly and personally managing the patient. This critical care time included obtaining a history; examining the patient; pulse oximetry; ordering and review of laboratory and imaging studies; arranging urgent treatment with development of a management plan; evaluation of patient's response to treatment; frequent reassessment; and, discussions with other providers as applicable. It was exclusive of separately billable procedures. Primary system involved is infectious disease and metabolic as well as hematolo gic. Discharge Plan Discharge Patient Disposition: Transfer to ED Clinical Impression: UTI (urinary tract infection), Sepsis, Seizure, Acute kidney injury, Thrombocytopenia, Metabolic acidosis, Transaminitis Condition: Stable Prescriptions: No Action sumatriptan succinate 100 mg Tablet 100 mg PO Q2H PRN (Reason: Migraine Headache) [id number] 50-325-40 mg tablet 1 tab PO PRN PRN (Reason: Migraine Headache) albuterol sulfate [Ventolin HFA] 90 mcg/actuation Hfa Aerosol Inhaler 1 inh INHALATION QID sulfasalazine 500 mg tablet 1,000 mg PO BID naproxen sodium 220 mg Tablet 220 mg PO BID PRN (Reason: Pain) prednisone 20 mg tablet 20 mg PO DAILY levofloxacin 750 mg tablet 750 mg PO DAILY Percocet 5-325 mg tablet 1 tab PO Q6H PRN (Reason: Pain) Referrals: Chung Loyola MD [Primary Care Provider] - Patient Instructions: Hyponatremia (ED), Benzodiazepine Use Disorder (ED), Dementia (ED), Non-diabetic Hypoglycemia (ED), Hypoglycemia in a Person with Diabetes (ED), Concussion (ED), Alcohol Intoxication (ED), Subarachnoid Hemorrhage (GEN), Altered Mental Status (ED) Coding Level of Care Code ED Rn Home Health for Natty Wilson
[2023-02-13 06:06] VITALS: BP 133/81; PULSE 108; RESP 22; O2SAT 94
--- NOTE | 2023-02-13 06:10 | XR_ITS ---
WS: [id number] XR chest 1V portable [id number] REASON FOR EXAM: ams FINDINGS: The chest is unchanged compared to 02/03/2021. The heart and mediastinum are within normal limits. Calcified granulomas disease in both hemithoraces. Prominent interstitial opacities in the left lower lung. These findings are chronic and seen on multi ple previous examinations. No acute or subacute pulmonary parenchymal or pleural abnormality is ident ified. Bony thorax is intact without significant focal abnormality. IMPRESSION: Stable abnormal chest with no acute abnormality.
--- NOTE | 2023-02-13 06:10 | ECG_ITS ---
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 Measurements Intervals [place] Rate: 101 P: 45 NM: 147 QRS: 56 QRSD: 78 T: 62 QT: 321 QTc: 418 Interpretive Statements SINUS TACHYCARDIA WITH OCCASIONAL SUPRAVENTRICULAR PREMATURE COMPLEXES Compared to ECG 10/15/2022 09:44:01 Sinus rhythm no longer present Electronically Signed On 02-14-2023 9:27:29 CDT by Nic Stacy M.D. [id number]
--- NOTE | 2023-02-13 06:12 | CTR_ITS ---
PROCEDURE INFORMATION: Exam: CT Abdomen And Pelvis Without Contrast Exam date and time: 02/13/2023 7:18 AM Age: 63 years old Clinical indication: Abdominal tenderness; Abdominal pain; Generalized; Additional info: Abd pain, n/v, AMS TECHNIQUE: Imaging protocol: Computed tomography of the abdomen and pelvis without contrast. Radiation optimization: All CT scans at this facility use at least one of these dose optimization techniques: automated exposure control; mA and/or kV adjustment per patient size (includes targeted exams where dose is matched to clinical indication); or iterative reconstruction. REPORTING DATA: Count of CT and Cardiac NM exams in prior 12 months: This patient has received [address] and 0 known cardiac nuclear medicine studies in the 12 months prior to the current study. COMPARISON: CT abdomen pelvis w con* [id number] 02/28/2017 7:07 AM RADIATION DOSE METRICS: Total DLP (mGy-cm): 525.23 FINDINGS: Lungs: Bronchial wall thickening in the left lower lobe. Liver: Normal. No mass. Gallbladder and bile ducts: Gallbladder is surgically removed Pancreas: Normal. No ductal dilation. Spleen: Splenomegaly with granulomatous disease Adrenal glands: Normal. No mass. Kidneys and ureters: Normal. No hydronephrosis. Stomach and bowel: Unremarkable. No obstruction. No mucosal thickening. Appendix: No evidence of appendicitis. Intraperitoneal space: Unremarkable. No free air. No significant fluid collection. Vasculature: Unremarkable. No abdominal aortic aneurysm. Lymph nodes: Unremarkable. No enlarged lymph nodes. Urinary bladder: Long catheter within the urinary bladder Reproductive: Unremarkable as visualized. Bones/joints: Unremarkable. No acute fracture. Soft tissues: Unremarkable. CT/CT kidney stone [id number] IMPRESSION: No acute abdominal or pelvic abnormality is appreciated. Left lower lobe infiltrate with bronchial wall thickening. Splenomegaly with granulomatous disease
--- NOTE | 2023-02-13 06:12 | CTR_ITS ---
PROCEDURE INFORMATION: Exam: CT Head Without Contrast Exam date and time: 02/13/2023 7:14 AM Age: 63 years old Clinical indication: Altered mental status/memory loss; Confusion or disorientation; Additional info: AMS TECHNIQUE: Imaging protocol: Computed tomography of the head without contrast. Radiation optimization: All CT scans at this facility use at least one of these dose optimization techniques: automated exposure control; mA and/or kV adjustment per patient size (includes targeted exams where dose is matched to clinical indication); or iterative reconstruction. REPORTING DATA: Count of CT and Cardiac NM exams in prior 12 months: This patient has received [address] and 0 known cardiac nuclear medicine studies in the 12 months prior to the current study. COMPARISON: CT cervical spin wo con* [id number] 09/04/2017 12:18 PM RADIATION DOSE METRICS: Total DLP (mGy-cm): 1034.88 FINDINGS: Brain: Normal. No hemorrhage. Unremarkable white matter. No mass effect. Cerebral ventricles: No ventriculomegaly. Paranasal sinuses: Visualized sinuses are unremarkable. No fluid levels. Mastoid air cells: Visualized mastoid air cells are well aerated. Bones/joints: Unremarkable. No acute fracture. Soft tissues: Unremarkable. CT/CT head wo con* [id number] IMPRESSION: No acute intracranial abnormality.
[2023-02-13] MEDS: LACTATED RINGERS 999 ML IV (06:21)
[2023-02-13 06:24] LABS: Basophils % 0.3 %; Hematocrit 34.2 % (37.0-47.0); Hemoglobin 12.2 g/dL (11.5-15.3); Lymphocytes # 0.3 10^3/uL (0.8-4.8); Lymphocytes % 9.7 %; Mean Corpuscular HGB Conc 35.7 g/dL (30.0-36.0); Mean Corpuscular Hemoglobin 36.3 pg (28.0-34.0); Mean Corpuscular Volume 101.8 fl (81-99); Monocytes # 0.2 10^3/uL (0.2-0.9); Monocytes % 5.4 %; Neutrophils # 2.93 10^3/uL (1.8-7.7); Neutrophils % 83.5 %; Nucleated Red Blood Cells % 0 %; Platelet Count 35 10^3/cmm (130-400); Red Blood Count 3.36 10^6/uL (4.1-5.3); Red Cell Distribution Width 12.4 % (12.1-15.1); White Blood Count 3.5 10^3/uL (4.0-10.0)
[2023-02-13 06:29] LABS: ABG PH Result 7.39 (7.35-7.45); Arterial Blood Gas Hematocrit 35.3 % (37-47); Base Excess ABG -11.7 mmol/L (-2.0-2.0); Blood Gas Allen Test Pos; Blood Gas Sample Site Radial, left; Blood Gas Sample Type Arterial; HCO3 ABG 11.1 mmol/L (22-26); PO2 ABG 96.1 mmHg (80.0-100.0)
--- NOTE | 2023-02-13 06:34 | PC.NURSE ---
pharmacy confirmed y-site vancomycin into lactated ringers.
[2023-02-13 06:42] LABS: Procalcitonin 1.21 ng/mL (0-0.5); Thyroid Stimulating Hormone 1.56 uIU/mL (0.27-4.20)
[2023-02-13 06:53] LABS: Alanine Aminotransferase 37 U/L (0-33); Albumin Level 3.6 g/dL (3.5-5.2); Alkaline Phosphatase 437 U/L (35-105); Anion Gap 29.8 (5-19); Aspartate Amino Transferase 86 U/L (0-32); Blood Urea Nitrogen 80 mg/dL (8-23); C Reactive Protein 182.4 mg/L (0.0-4.9); Calcium 8.1 mg/dL (8.5-10.5); Carbon Dioxide 11 mmol/L (22-29); Chloride 96 mmol/L (98-107); Globulin 2.5 g/dL (1.3-4.6); Glomerular Filtration Rate 5.8 mL/min (90-130); Glucose 132 mg/dL (65-115); Magnesium 1.6 mg/dL (1.7-2.3); Osmolality Calculated 302 mOsm/kg (285-295); Potassium 3.8 mmol/L (3.5-5.1); Salicylate 0.4 mg/dL (3-10); Sodium 133 mmol/L (136-145); Total Protein 6.1 g/dL (6.6-8.7)
[2023-02-13 06:54] LABS: Acetaminophen < 5.0 ug/mL (10-30); Alcohol Level < 10 mg/dL (0-10)
[2023-02-13 06:55] LABS: Slide Review Slide Review Perform
[2023-02-13] MEDS: vancomycin 1,500 MG/300 ML PIGGYBACK 200 MG IV (06:58)
[2023-02-13] MEDS: levofloxacin-dextrose 5 % 750 MG/150 ML PREMIX 100 MG IV (06:59)
[2023-02-13 07:03] VITALS: PULSE 95; RESP 26; O2SAT 99
[2023-02-13 07:03] LABS: Lactic Sepsis W/Reflex 2.4 mmol/L (0.5-2.2)
[2023-02-13 07:08] LABS: Troponin(5th) Baseline 36 ng/L (0-10)
[2023-02-13 07:13] LABS: Add Urine Microscopic? YES; Bilirubin Urine 1+ (Negative); Blood Urine 3+ (Negative); Glucose Urine UA Trace (Normal); Ketones Urine Negative (Negative); Leukocyte Esterase Urine Negative (Negative); Nitrate Urine Negative (Negative); Protein Urine 3+ (Negative); Urine Appearance Hazy (CLEAR); Urine Color Yellow (Yellow); Urobilinogen Urine Norm (Negative); pH Urine 5 (5-7)
[2023-02-13 07:18] LABS: INR 1.29 (0.8-1.2)
[2023-02-13 07:19] LABS: Fibrinogen 377 mg/dL (174-498); Partial Thromboplastin Time 48.5 SECONDS (23.9-36.7)
[2023-02-13] MEDS: LORazepam 2 mg/mL INJ 1 mL IVP (07:30)
[2023-02-13 07:47] LABS: RBC Urine 40-50 /hpf (0-2)
[2023-02-13 07:48] LABS: Bacteria Urine 1+ /hpf; Coarse Granular Casts Urine 15-25 /lpf; Mucus Urine TRACE /hpf
[2023-02-13 07:49] LABS: Add Urine Culture? Yes; Hyaline Casts Urine 0-4 /lpf
--- NOTE | 2023-02-13 08:23 | ECG_ITS ---
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 Measurements Intervals [place] Rate: 115 P: 71 ND: 160 QRS: 72 QRSD: 81 T: 81 QT: 312 QTc: 432 Interpretive Statements SINUS TACHYCARDIA MINIMAL ST DEPRESSION [0.025+ mV ST DEPRESSION] ABNORMAL RHYTHM ECG Compared to ECG 02/13/2023 06:55:26 ST (T wave) deviation now present Electronically Signed On 02-14-2023 9:31:23 CDT by Nic Stacy M.D. [id number]
[2023-02-13 08:32] LABS: Reflex Lactate Order REFLEX LACTIC ORDERD
--- NOTE | 2023-02-13 08:45 | P.CONIM_ITS ---
Providers/Reason For Consult Consulting Physician/Specialty*: Paco Curtis MD Reason for Consult*: Severe illness, possible admission Requesting Physician: Dr. Mercedes Primary Care Provider: Chung Loyola MD History of Present Illness History of Present Illness Oly Loza is a 63 year old female presenting to the emergency department with a seizure. is present at bedside and reports that she has been ill, since last week when she had a little bit of vomiting on Friday. She had some disorientation started on Friday. She has not ate or drank well since that time, continuing to vomit intermittently. She has had some loose stool. She had a fever, around Friday, approximately 101 ?F. There has been no blood in stool, blood in emesis. She did have a tick, on her back that was removed about a week ago. Patient is not able to give any historical elements secondary to her current encephalopathy/delirium. All of her history is obtained from the emergency department physician and her family which is at bedside. They reports she has not been able to take any of her medicine prescribed with the exception of occasional dose of 500 mg of sulfasalazine. She was prescribed Levaquin and prednisone at a recent urgent care visit but vomited that medicine when she attempted to take it. reports she has had some head and neck pain as well. On arrival to the emergency department she demonstrated seizure activity again. Keppra was initiated. Before I saw the patient, initial appropriate fluids with a sepsis bolus has been given. She had received the Keppra. Levaquin had been ordered. Ativan had been given for seizure in the emergency department. Vancomycin had been ordered. Cultures had been obtained. I asked that they send a tick panel as well. Review of Systems General: Reports: ROS unobtainable due to mental status Medications/Allergies Home Medications Medication Instructions Recorded Confirmed Last Taken Type albuterol sulfate 90 mcg/actuation 1 inh inhalation QID 08/23/20 02/13/23 10/22/22 History aerosol inhaler (Ventolin HFA) fzwkjnygfw-[id number]-jkjtbhob 1 tab PO PRN PRN Migraine Headache 08/23/20 02/13/23 Unknown History 50 mg-325 mg-40 mg tablet sumatriptan succinate 100 mg tablet 100 mg PO Q2H PRN Migraine Headache 08/23/20 02/13/23 10/22/22 History naproxen sodium 220 mg tablet 220 mg PO BID PRN Pain 10/15/22 02/13/23 10/18/22 History sulfasalazine 500 mg tablet 1,000 mg PO BID 10/15/22 02/13/23 10/15/22 History levofloxacin 750 mg tablet 750 mg PO DAILY 02/13/23 02/13/23 Unknown History oxycodone-acetaminophen 5 mg-325 1 tab PO Q6H PRN Pain 02/13/23 02/13/23 Unknown History mg tablet (Percocet) prednisone 20 mg tablet 20 mg PO DAILY 02/13/23 02/13/23 Unknown History Allergies Allergy/AdvReac Type Severity Reaction Status Date / Time amitriptyline Allergy ALGY-Rash Verified 02/13/23 06:00 Cephalosporins Allergy ALGY-Rash Verified 02/13/23 06:00 Penicillins Allergy ALGY-Rash Verified 02/13/23 06:00 tramadol Allergy ADR-Seizure Verified 02/13/23 06:00 PFSH Acute PFSH: Medical History Degenerative joint disease of left knee DJD (degenerative joint disease) Migraine headache Surgical History History of appendectomy History of cholecystectomy History of hysterectomy History of tubal ligation Family History Other Stroke Social History Smoking and tobacco status: never smoked Alcohol intake: never Vitals/I&O/Wt Last Vital Signs Temp 98.6 F 02/13/23 05:52 Pulse 95 02/13/23 07:03 Resp 26 H 02/13/23 07:03 BP 133/81 02/13/23 06:06 Pulse Ox 99 02/13/23 07:03 O2 Del Method Room Air 02/13/23 07:03 Weight last 48 hrs Weight 58.967 kg Physical Exam Narrative: General exam demonstrates a white female, who would not respond to me verbally, but would make eye contact briefly. She was laying on her left side, not wanting to lay on her back, with her knees curled to her abdomen. HEENT: Pupils are equally round. It was difficult to examine her oropharynx but it appeared clear. Neck is supple Cardiovascular regular rate and rhythm, borderline tachycardic, no murmur Lungs clear Abdomen is soft. It did not seem that there was any tenderness. No obvious organomegaly. exam was deferred Extremities no cyanosis clubbing or edema, cap refill brisk. Site of left knee surgery from October is well-healed. No drainage. Skin no rash Neuro no obvious focal deficits Urinary Catheter Management: Long: Cath Placed During This Visit: yes Reason for Continuing Indwelling Catheter: Other Urinary Catheter Date of Insertion: 02/13/23 Urinary Catheter Time of Insertion: 07:11 Sepsis: Is patient septic: Yes Focused sepsis exam performed: Yes Date exam was performed: 02/13/23 Time exam was performed: 08:20 Data 02/13/23 05:55 02/13/23 05:55 Other Labs: Lymphopenia is noted INR 1.29, PTT 48.5. Fibrinogen still normal at 377 ABG demonstrates a pH 7.39, pCO2 18, pO2 96 on room air LFTs demonstrate an AST of 86, ALT 37, alk phos 437, bilirubin is normal. Tr oponin is 36 and repeat of 56 CRP 184 Albumin 3.6, calcium 8.1 Procalcitonin 1.2 TSH 1.56 Magnesium low at 1.6 Lactic acid 2.4 with repeat of 3.0 Urinalysis with 40-50 red blood cells, 10-15 white blood cells. 3+ protein is noted Talk screen with salicylates acetaminophen and alcohol negative Again I prompted an order for a tick panel, CPK Head CT negative Abdominal pelvis CT with some splenomegaly. A left lower lobe infiltrate. Chest x-ray by my read demonstrates normal cardiac silhouette, no obvious infiltrate Blood and urine cultures have been obtained EKG demonstrated sinus tachycardia with a rate of 100, a lot of baseline artifact. No evidence of ST elevation. I had also ordered a haptoglobin level. Micro: Microbiology 02/13/23 06:38 Blood Culture - Preliminary Blood SPECIMEN COLLECTED 02/13/23 06:30 Blood Culture - Preliminary Blood SPECIMEN COLLECTED A&P Assessment and plan (1) Sepsis: Patient has evidence for sepsis. She has leukopenia. She likely has early DIC. She has evidence of endorgan dysfunction with renal failure, elevated liver tests, encephalopathy. Lactate is high. She does not have evidence of hypotension. Appropriate fluids with LR have been ordered Vancomycin and Levaquin were ordered. I have changed the Levaquin to meropenem 2 g IV x 1, for the possibility of meningitis in this patient who is apparently penicillin and cephalosporin allergic Appropriate cultures have been obtained Blood pressure is adequate currently (2) Seizure: Patient presents with seizure. Supplement magnesium CT head no acute findings Keppra has been given Secondary to sepsis with seizure lumbar puncture would be appropriate. Unfortunately this may need to be delayed secondary to low platelets. Ideally platelets would be given, and lumbar puncture obtained. Unfortunately we have a significant delay getting platelets and this can pose significant safety issues in this patient with platelet count less than 50,000 with need for lumbar puncture, possible need for dialysis catheter if renal dysfunction worsens or is determined to be in relation to seizure activity (3) Acute kidney injury: Patient with evidence of acute kidney injury. This could be secondary to dehydration, in combination with continuing to take sulfasalazine. Cannot rule out any nephritic the as significant proteinuria is present as well. I have received the results of her haptoglobin which is normal which reduce the chance of TTP somewhat. Continue hydration Will ultimately need nephrology consultation (4) Thrombocytopenia: Patient with severe thrombocytopenia. This could be secondary to sepsis. Doubt microangiopathic hemolytic conditions as haptoglobin is normal. Could be secondary to tickborne illness. Recommend repeating platelet count later this afternoon, if patient has not been transferred by that time. (5) Leukopenia: Significant leukopenia. This could be secondary to tickborne illness, sepsis. Lymphopenia on differential. Continue to monitor. (6) Metabolic acidosis: Metabolic acidosis is present, likely secondary to patient's renal failure, sepsis and dehydration (7) Hypomagnesemia: Hypomagnesemia was found. Supplement 2 g IV. (8) Proteinuria: See comments above. (9) Acute encephalopathy: Patient with severe acute encephalopathy Lumbar puncture is warranted secondary to concern of sepsis. However, platelet count is less than 50,000. Will need to be in a center with the ability to transfuse platelets rapidly for procedures such as this or possible need for dialysis catheter if renal function worsens Plan Elevated troponin. This is likely secondary to a type II elevation. Patient presents with critical illness, requiring ICU care. This would be best done in a place with critical care available. We do not have critical care available today. Patient also has marked thrombocytopenia in the face of multiorgan dysfunction. She would ideally require an LP. It is not ideal to keep the patient here considering and will likely take 6 hours to get platelets to transfuse for any procedures and/or patient worsening. I do believe she is likely in the initiation of DIC with her elevated INR, PTT, and low platelets even though her fibrinogen is still normal. Transfer was recommended. I will continue to try to help manage the patient in the emergency department until this occurs. Consult Attestations Medical Necessity Statement: Not applicable Critical Care Time: The high probability of a clinically significant, sudden or life threatening deterioration of the patient's [renal hepatic, neurologic, cardiac, infectious] system(s) required my full and direct attention, intervention and personal management. The critical care time is as shown. This time is in addition to time spent performing any reported procedures but includes the following: [x] Data and vital sign review and interpretation [x] Patient assessment, examination and intervention [x] Documentation [x] Medication orders and management Critical Care Time (min): 73 Coding Level of Care Code Critical Care >/= 30 minutes Critical care time (in minutes): 73 The high probability of a clinically significant, sudden or life threatening deterioration, as referenced in this documentation, required my full and direct attention, intervention and personal management. The critical care time shown is in addition to time spent performing any reported separately billable procedures and includes the following: [x] Data and vital sign review and interpretation [x ] Patient assessment, examination and intervention [x] Medication orders and management [x] Patient/Family updates as able [x] Care Coordination and Documentation. Diagnoses Sepsis A41.9 Seizure R56.9 Acute kidney injury N17.9 Thrombocytopenia D69.6 Leukopenia D72.819 Metabolic acidosis E87.20 Hypomagnesemia E83.42 Proteinuria R80.9 Acute encephalopathy G93.40
[2023-02-13 09:03] LABS: Troponin 5 2HR 56.58 ng/L (0-10)
[2023-02-13 09:05] LABS: Troponin 5 2HR Delta 20.58 ABS# (0-10)
[2023-02-13 09:15] VITALS: BP 110/72; PULSE 97; RESP 27; O2SAT 99
[2023-02-13] MEDS: magnesium sulfate premix 2 GM/50 ML PIGGYBACK IV (09:23)
[2023-02-13 09:30] VITALS: BP 114/63; PULSE 93; RESP 22; O2SAT 98
[2023-02-13 09:45] VITALS: BP 109/65; PULSE 94; RESP 22; O2SAT 98
[2023-02-13 11:59] LABS: Creatine Phosphokinase 71 U/L (26-192)
[2023-02-14 14:29] LABS: Lyme AB Screen <0.90 index
[2023-02-19 14:44] LABS: RMSF IGG NOT DETECTED; RMSF IGM NOT DETECTED
[2023-02-20 17:15] LABS: E. Chaffeensis AB IGM 1:20
[2023-03-19 12:42] LABS: ABG PCO2 18.2 mmHg (35-45)
== END 2023-02-13 11:47 ==
PROVIDERS: Internal Medicine; Emergency Provider Emergency Medicine; PCP Family Medicine
DX: N39.0 Urinary tract infection, site not specified (principal); A41.9 Sepsis, unspecified organism; R56.9 Unspecified convulsions; N17.9 Acute kidney failure, unspecified; D69.6 Thrombocytopenia, unspecified; E87.20 Acidosis, unspecified; R74.01 Elevation of levels of liver transaminase levels
CPT/HCPCS: 36415; 36600; 51702; 70450; 71045; 74176; 80053; 80307; 81001; 82550; 82803; 83010; 83605; 83735; 84145; 84443; 84484; 85025; 85384; 85610; 85730; 86140; 86618; 86666; 86757; 87040; 87086; 93005; 96365; 96366; 96367; 96375; 99291; J1953; J1956; J2060; J3370; J3475; J7120

== ENCOUNTER 2023-03-25 09:49 | Outpatient (CLI) | payer OTHER, SELFPAY ==
[2023-03-25 11:11] LABS: Anion Gap 14.9 (5-19); Blood Urea Nitrogen 26 mg/dL (8-23); Calcium 9.1 mg/dL (8.5-10.5); Carbon Dioxide 22 mmol/L (22-29); Chloride 107 mmol/L (98-107); Glomerular Filtration Rate 28.5 mL/min (90-130); Glucose 96 mg/dL (65-115); Osmolality Calculated 293 mOsm/kg (285-295); Potassium 4.9 mmol/L (3.5-5.1); Sodium 139 mmol/L (136-145)
[2023-03-25 11:13] LABS: Total Volume Urine 2000 ml
[2023-03-25 11:16] LABS: Creatinine Clearance, Urine 53 mL/Min (88-128); Creatinine, Urine (Cre Clear) 46 mg/dL (28-217); Glomerular Filtration Rate 28.5 mL/min (90-130)
== END 2023-03-25 09:50 | disposition home or self-care (01) ==
PROVIDERS: PCP Family Medicine; Visit Provider Internal Medicine
DX: N17.9 Acute kidney failure, unspecified (principal)
CPT/HCPCS: 36415; 80048; 82575

== ENCOUNTER → 2023-05-16 10:54 | Outpatient (BNVA) | payer OTHER, SELFPAY | PROVIDERS: PCP Family Medicine; Visit Provider Student in an Organized Health Care Education/Training Program | DX: Z96.652 Presence of left artificial knee joint (principal); Z47.1 Aftercare following joint replacement surgery | CPT/HCPCS: 73560; 73565 ==

== ENCOUNTER 2024-08-27 12:50 | Emergency (ER) | payer OTHER, SELFPAY ==
[2024-08-27 12:51] VITALS: BP 140/76; PULSE 85; RESP 16; TEMP 36.8; O2SAT 96; BMI 25.0
--- NOTE | 2024-08-27 13:02 | CT_ITS ---
WS: [id number] CT ANGIOGRAM CEREBRAL AND CAROTID ARTERIES HISTORY: Possible stroke TECHNIQUE: CT angiogram is performed of the carotid and cerebral arteries. During arterial injection imaging is obtained from the skull vertex to the aortic arch in 1.25 mm imaging. Coronal and sagittal reformats are submitted. Additional multi planar reformats of the carotid and cerebral arteries are submitted, MIP imaging also reviewed. NASCET criteria utilized. All CT scans at [facility] use at least one of these dose optimization techniques: automated exposure control; mA and/or kV adjustment per patient size (includes targeted exams where dose is matched to clinical indication); or iterative reconstruction. CONTRAST: Omnipaque 350; 100 mL IV. DLP: 366.70 mGy.cm COMPARISON: 08/27/2024 Carotid Angiogram: Right carotid: Common carotid artery: Arises normally from the innominate artery. No significant plaque or stenosis. Internal carotid artery: No plaque or stenosis. External carotid artery: Patent. Left carotid: Common carotid artery: Arises normally from the aorta. No significant plaque or stenosis. Internal carotid artery: Very small amount of plaque near the bifurcation. No stenosis. External carotid artery: Patent. Right vertebral artery: Unremarkable. Left vertebral artery: Unremarkable. Arises normally from the subclavian artery. Subclavian arteries: No stenosis or significant abnormality. Upper thorax: Normal. Thyroid gland: Normal. Osseous structures: Reversal the normal cervical lordosis with disc space narrowing centered at C5-6. CEREBRAL ANGIOGRAM: Intracranial vertebral arteries: Normal with no significant atherosclerosis. Basilar artery: No significant stenosis or occlusion. No aneurysm. Intracranial Internal carotid arteries: Demonstrates no significant stenosis or plaque. Intracranial carotid arteries are very tortuous through the cavernous sinuses but there is no occlusion or thrombus. No aneurysm. Middle cerebral arteries: Normal. Anterior cerebral arteries and ACOM: Normal. Posterior cerebral arteries and PCOM's: Absent or hypoplastic LEFT P1 segment. Posterior cerebral arteries are both robust. Dural venous sinuses are normally enhancing. Mastoid air cells: Normal. Paranasal sinuses: Tiny air-fluid level in the RIGHT sphenoid sinus. Calvarium: Normal. CT/CT angio headneck* [id number] IMPRESSION: 1. No significant cervical carotid artery stenosis. 2. No [place] aneurysms, thrombus or stenosis. 3. Hypoplastic or absent LEFT P1 segment.
--- NOTE | 2024-08-27 13:02 | CT_ITS ---
WS: [id number] CT HEAD NONCONTRAST HISTORY: possible stroke TECHNIQUE: Contiguous axial imaging performed through the brain. Bone and soft tissue windows. Sagittal and coronal reformats reviewed. All CT scans at [facility] use at least one of these dose optimization techniques: automated exposure control; mA and/or kV adjustment per patient size (includes targeted exams where dose is matched to clinical indication); or iterative reconstruction. DLP: 1055.61 mGy COMPARISON: None available. No acute intracranial hemorrhage, midline shift or mass effect. Minimal bifrontal lobe atrophy. Minimal small vessel disease. No prior infarct. Ventricles: Normal size with no hydrocephalus. Paranasal sinuses: As visualized are clear. Mastoid air cells: Small air-fluid level in the RIGHT sphenoid sinus. Calvarium and scalp: Skull is intact with no soft tissue edema or swelling. CT/CT head thrombolytic [id number] IMPRESSION: 1. No acute intracranial hemorrhage or edema. 2. Mild bifrontal lobe atrophy. Notified Leidy Paris MD at 08/27/2024 1:20 PM.
--- NOTE | 2024-08-27 13:14 | XR_ITS ---
WS: [id number] Exam: XR chest 1V portable [id number] Date/Time of Exam: 08/27/2024 1:15 PM Reason For Exam: Weakness Comparison 02/13/2023. Lungs are fully expanded. Chronic interstitial changes and calcified granulomas noted bilaterally. Cardiomediastinal silhouette is unremarkable for technique. No pleural effusion. Bony structures are unremarkable. Radiographic contrast noted in the bilateral renal collecting systems. XR/XR chest 1V portable [id number] IMPRESSION: 1. No acute cardiopulmonary finding. Chronic changes.
--- NOTE | 2024-08-27 13:14 | ECG_ITS ---
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
[2024-08-27] MEDS: iohexol 350 mg/mL 500 mL Btl (per mL) IV (13:21)
--- NOTE | 2024-08-27 13:21 | ED_ITS ---
HPI - Altered Mental Status 2 General: Chief Complaint: Altered Mental Status Stated Complaint: confuse, (allergic reaction) Time Seen by Provider: 08/27/24 13:01 History of Present Illness: 64-year-old female with a history of chanud rebeca who presents to the emergency room with slurred speech and dizziness. This started about 8 AM today. Nursing reports that when she was in triage she had some balance issues and was falling to the left. She reports vertigo type dizziness. When I examine her she has no focal motor deficits. No drift. No visual deficits. She is able to speak without difficulty. I looked at her again briefly afterwards and she is more somnolent now and does have some slight slurred speech. Apparently she started on some Tylenol 3 recently. She is on Eliquis secondary to a blood clot that was in her arm. Related Data Home Medications ?Medication ?Instructions ?Recorded ?Confirmed albuterol sulfate 90 mcg/actuation 1 inh inhalation QI D PRN Shortness 08/23/20 08/27/24 aerosol inhaler (Ventolin HFA) Of Breath ggjectbhbe-qaxsyetazaoxv-qmprdbpt 1 tab PO PRN PRN Chandu scott Headache 08/23/20 08/27/24 50 mg-325 mg-40 mg tablet sumatriptan succinate 100 mg tablet 100 mg PO Q2H PRN Migraine Headache 08/23/20 08/27/24 naproxen sodium 220 mg tablet 220 mg PO BID PRN Pain 0 10/15/22 08/27/24 sulfasalazine 500 mg tablet 1,000 mg PO BID 10/15/22 0 08/27/24 acetaminophen 300 mg-codeine 15 mg 1 tab PO TID PRN Pa in 04/07/23 08/27/24 tablet apixaban 5 mg tablet (Eliquis) 5 mg PO BID 05/16/23 lacosamide 100 mg tablet 100 mg PO BID 05/16/2308/27 baclofen 20 mg tablet 20 mg PO TID PRN Pain 08/27/24 benzonatate 100 mg capsule 100 mg PO TID PRN Cough 08/27/24 diazepam 10 mg tablet 10 mg PO BID PRN severe back pain 08/27/24 08/27/24 doxycycline hyclate 100 mg capsule 100 mg PO BID 08/2708/27/24 ergocalciferol (vitamin D2) 1,250 50,000 unit PO Q7D 0 08/27/24 08/27/24 mcg (50,000 unit) capsule folic acid 1 mg tablet 2 mg PO DAILY 08/27/2408/27 hydrocodone 5 mg-acetaminophen 325 1 tab PO Q6H PRN Pa in 08/27/24 08/27/24 mg tablet losartan 50 mg tablet 50 mg PO DAILY 08/27/2408/08 pantoprazole 40 mg tablet,delayed 40 mg PO BID 5 08/27/24 release prednisone 20 mg tablet See Rx Instructions .Route . COMPLEX 08/27/24 08/27/24 tizanidine 4 mg tablet 4 mg PO TID PRN Muscle Spasm 08/27/24 08/27/24 Previous Rx's ?Medication ?Instructions ?Recorded ondansetron 4 mg disintegrating 4 mg PO Q8H PRN nausea and 04/09/23 tablet vomiting #15 tabs Allergies Allergy/AdvReac Type Severity Reaction Status Date / Time amitriptyline Allergy ALGY-Rash Verified 05/16/23 10:51 Cephalosporins Allergy ALGY-Rash Verified 05/16/23 10:51 Penicillins Allergy ALGY-Rash Verified 05/16/23 10:51 tramadol Allergy ADR-Seizure Verified 05/16/23 10:51 Review of Systems 2 Narrative: Constitutional symptoms: Negative except as documented in HPI. Skin symptoms: Negative except as documented in HPI. Eye symptoms: Negative except as documented in HPI. ENMT symptoms: Negative except as documented in HPI. Respiratory symptoms: Negative except as documented in HPI. Cardiovascular symptoms: Negative except as documented in HPI. Gastrointestinal symptoms: Negative except as documented in HPI. Genitourinary symptoms: Negative except as documented in HPI. Musculoskeletal symptoms: Negative except as documented in HPI. Neurologic symptoms: Negative except as documented in HPI. Psychiatric symptoms: Negative except as documented in HPI. Endocrine symptoms: Negative except as documented in HPI. PFSH ED 2 PFSH: Medical History Degenerative joint disease of left knee DJD (degenerative joint disease) Migraine headache Surgical History History of appendectomy History of cholecystectomy History of hysterectomy History of tubal ligation Family History Other Stroke Social History Smoking and tobacco/nicotine status: never used tobacco/nicotine Alcohol intake: never Physical Exam 2 Narrative: General: Patient has some somnolence but arouses, no acute distress. Skin: Warm, dry. Head: Normocephalic, atraumatic. Neck: Supple, trachea midline. Eye: Extraocular movements are intact. Ears, nose, mouth and throat: mucosa moist. Cardiovascular: Regular, Normal peripheral perfusion. Respiratory: Lungs are clear to auscultation, respirations are non-labored, breath sounds are equal, Symmetrical chest wall expansion. Gastrointestinal: Soft, Nontender, Non distended Musculoskeletal: Normal ROM, no deformity. Neurological: Alert and oriented, No focal neurological deficit observed. Psychiatric: Cooperative, appropriate mood & affect. Course 2 Vital Signs: Vital signs: Vital Signs Temperature 98.3 F 08/27/24 12:51 Pulse Rate 68 08/27/24 13:27 Respiratory Rate 16 08/27/24 12:51 Blood Pressure 128/77 08/27/24 13:27 Pulse Oximetry 95 08/27/24 13:27 Oxygen Delivery Me thod Room Air 08/27/24 12:51 MDM - Altered Mental Status Medical Decision Making Medical decision making: Differential diagnosis for patient with focal neurologic deficit(s) includes but not limited to and based on the above HPI, review of systems and physical exam: ischemic stroke, hemorrhagic stroke and embolic stroke secondary to atrial fibrillation), TIA, Alex's palsey, metabolic encephalopathy with previous stroke. Orders placed to evaluate differential diagnosis based on the above differential, HPI and physical exam NIH Stroke Scale/Score (NIHSS) from [email or web address] on 08/27/2024 All calculations should be rechecked by clinician prior to use RESULT SUMMARY: 1 points NIH Stroke Scale INPUTS: 1A: Level of consciousness ?> 0 = Alert; keenly responsive 1B: Ask month and age ?> 0 = Both questions right 1C: 'Blink eyes' & 'squeeze hands' ?> 0 = Performs both tasks 2: Horizontal extraocular movements ?> 0 = Normal 3: Visual larson ?> 0 = No visual loss 4: Facial palsy ?> 0 = Normal symmetry 5A: Left arm motor drift ?> 0 = No drift for 10 seconds 5B: Right arm motor drift ?> 0 = No drift for 10 seconds 6A: Left leg motor drift ?> 0 = No drift for 5 seconds 6B: Right leg motor drift ?> 0 = No drift for 5 seconds 7: Limb Ataxia ?> 0 = No ataxia 8: Sensation ?> 0 = Normal; no sensory loss 9: Language/aphasia ?> 0 = Normal; no aphasia 10: Dysarthria ?> 1 = Mild-moderate dysarthria: slurring but can be understood 11: Extinction/inattention ?> 0 = No abnormality Consultation: I spoke with Dr. Brown who is on-call for neurology. Patient is out of the window had about 5 hours, and is also on blood thinner Eliquis both of which ruled her out for any TNKase administration at this time. EKG: Time 1323. Rate 76. Normal sinus rhythm, No ST-T changes, no ectopy, normal GA & QRS intervals, This was reviewed and interpreted by myself the ER physician at 1328 CT head: No acute intracranial process. no intracranial hemorrhage, no evidence of infarct. no evidence of acute fracture.This was reviewed and interpreted by myself the ER physician. CTA of the head and neck: No obvious stenosis or occlusions are identified. No mass. This was reviewed and interpreted by myself the emergency room physician. I also reviewed the radiology report. Chest x-ray: No acute process. No infiltrate. No pneumothorax. This was reviewed and interpreted by myself the emergency room physician. I also reviewed the radiology report. Lab Review: Laboratory results were reviewed and interpreted by myself the emergency room physician. No leukocytosis. No anemia. Renal function is at her about her baseline at 26 and 1.1. No urinary tract infection but her urine is quite concentrated with a specific gravity of 1.059. Drug screen is diffusely positive. Opiates, benzos, marijuana, barbiturates. I reviewed the patient's medical record. Reexamination: Patient responded to Narcan. She has been taking some new Tylenol with codeine. She also looks a bit dehydrated. On exam and her urine is quite concentrated. BUN and creatinine are around her baseline at 26 and 1.1. She has had renal failure in the past. No focal motor deficits. Somnolence is improved. I discussed findings with family and with the patient. She has flu, is a bit dehydrated and was taking a new narcotic pain medication. She responded to Narcan. And recommend that she just take Tylenol or other rbrk-kqk-kdorzrb's for now. Assessment and plan: Influenza A Dehydration Unintentional medication overdose ? Saline bolus and Narcan. Patient has improved considerably. - Discharged home - Discussed plan with patient. Answered any questions. - Evaluation and treatment of this problem were appropriate in the emergency setting. Lab Data 08/27/24 13:17 08/27/24 13:[address] 08/27/24 13:02 IMPRESSION: 1. No acute intracranial hemorrhage or edema. 2. Mild bifrontal lobe atrophy. Notified Leidy Paris MD at 08/27/2024 1:20 PM. Head/Neck CTA 08/27/24 13:02 IMPRESSION: 1. No significant cervical carotid artery stenosis. 2. No [place] aneurysms, thrombus or stenosis. 3. Hypoplastic or absent LEFT P1 segment. Chest X-Ray 08/27/24 13:14 IMPRESSION: 1. No acute cardiopulmonary finding. Chronic changes. Laboratory Results WBC 4.52 10^3/uL (3.29-11.43) 08/27/24 13:17 RBC 3.25 10^6/uL (3.85-5.65) L 08/27/24 13:17 Hgb 11.40 g/dL (11.27-16.99) 08/27/24 13:17 Hct 36.2 % (36-47) 08/27/24 13:17 MCV 111.4 fl (85-98) H 08/27/24 13:17 MCH 35.1 pg (27-33) H 08/27/24 13:17 MCHC 31.5 g/dL (30-55) 08/27/24 13:17 RDW 11.2 % (12.1-15.1) L 08/27/24 13:17 Plt Count 111 10^3/cmm (157-399) L 08/27/24 13:17 MPV 11.2 fL (7.4-10.4) H 08/27/24 13:17 Neut % (Auto) 72.0 % 08/27/24 13:17 Lymph % (Auto) 13.7 % 08/27/24 13:17 Charles % (Auto) 13.7 % 08/27/24 13:17 Eos % (Auto) 0.2 % 08/27/24 13:17 Baso % (Auto) 0.2 % 08/27/24 13:17 Neut # (Auto) 3.25 10^3/uL (1.8-7.7) 08/27/24 13:17 Lymph # (Auto) 0.6 10^3/uL (0.8-4.8) L 08/27/24 13:17 Charles # (Auto) 0.6 10^3/uL (0.2-0.9) 08/27/24 13:17 Eos # (Auto) 0.0 10^3/uL (0.0-0.8) 08/27/24 13:17 Baso # (Auto) 0.0 10^3/uL (0.0-0.1) 08/27/24 13:17 Nucleated RBC % (auto) 0 % 08/27/24 13:17 Nucleated RBCs # 0.0 /100WBC 08/27/24 13:17 PT 14.00 SECONDS (12.1-14.9) 08/27/24 13:17 INR 1.01 (0.8-1.2) 08/27/24 13:17 APTT 37.2 SECONDS (23.9-36.7) H 08/27/24 13:17 Specimen Type Arterial 08/27/24 14:00 Sample Site Radial, right 08/27/24 14:00 ABG pH 7.37 (7.35-7.45) 08/27/24 14:00 ABG pCO2 40.8 mmHg (35-45) 08/27/24 14:00 ABG pO2 84.0 mmHg (80.0-100.0) 08/27/24 14:00 ABG PO2/FiO2 Ratio 400 08/27/24 14:00 ABG HCO3 23.3 mmol/L (22-26) 08/27/24 14:00 ABG O2 Saturation 95.9 08/27/24 14:00 ABG Base Excess -1.9 mmol/L (-2.0-2.0) 08/27/24 14:00 Mauricio Test Pos 08/27/24 14:00 A-a O2 Gradient 2.3 mmHg (5-10) L 08/27/24 14:00 Hematocrit 32.7 % (37-47) L 08/27/24 14:00 Hgb O2 Saturation 94.2 % (95-100) L 08/27/24 14:00 Carboxyhemoglobin 1.0 %THgb (0.4-20.1) 08/27/24 14:00 Methemoglobin 0.9 % (0.4-1.5) 08/27/24 14:00 Total Hemoglobin 10.7 g/dL (12-16) L 08/27/24 14:00 Sodium 137.0 mmol/L (131-143) 08/27/24 14:00 Potassium 3.8 mmol/L (3.5-5.0) 08/27/24 14:00 Glucose 99.0 mg/dL (70-115) 08/27/24 14:00 Ionized Calcium 1.2 mmol/L (1.1-1.4) 08/27/24 14:00 O2 Delivery Device Room air 08/27/24 14:00 FiO2 21.0 % 08/27/24 14:00 Managed Care Director ID Kevina 08/27/24 14:00 Sodium 136 mmol/L (136-145) 08/27/24 13:17 Potassium 4.0 mmol/L (3.5-5.1) 08/27/24 13:17 Chloride 100 mmol/L (98-107) 08/27/24 13:17 Carbon Dioxide 23 mmol/L (22-29) 08/27/24 13:17 Anion Gap 17.0 (5-19) 08/27/24 13:17 BUN 26 mg/dL (8-23) H 08/27/24 13:17 Creatinine 1.1 mg/dL (0.5-0.9) H 08/27/24 13:17 GFR Calculation 50.2 mL/min (90-130) L 08/27/24 13:17 Glucose 93 mg/dL (65-115) 08/27/24 13:17 POC Glucose 89 mg/dL (70-110) 08/27/24 13:21 Calculated Osmolality 286 mOsm/kg (285-295) 08/27/24 13:17 Lactic Acid 0.8 mmol/L (0.5-2.2) 08/27/24 13:17 Calcium 9.2 mg/dL (8.5-10.5) 08/27/24 13:17 Total Bilirubin 0.2 mg/dL (0.15-1.2) 08/27/24 13:17 AST 63 U/L (0-32) H 08/27/24 13:17 ALT 59 U/L (0-33) H 08/27/24 13:17 Alkaline Phosphatase 111 U/L (35-105) H 08/27/24 13:17 Troponin T Baseline 17 ng/L (0-10) H 08/27/24 13:17 C-Reactive Protein 26.1 mg/L (0.0-4.9) H 08/27/24 13:17 Total Protein 6.7 g/dL (6.6-8.7) 08/27/24 13:17 Albumin 4.4 g/dL (3.5-5.2) 08/27/24 13:17 Globulin 2.3 g/dL (1.3-4.6) 08/27/24 13:17 Urine Color Dark yellow (Yellow) A 08/27/24 13:42 Urine Appearance Clear (CLEAR) 08/27/24 13:42 Urine pH 5.0 (5-7) 08/27/24 13:42 Ur Specific [place] 1.059 (1.005-1.030) H 08/27/24 13:42 Urine Protein 1+ (Negative) A 08/27/24 13:42 Urine Glucose (UA) Negative (Normal) 08/27/24 13:42 Urine Ketones Negative (Negative) 08/27/24 13:42 Urine Blood Non-haemolysed trace (Negative) 08/27/24 13:42 Urine Nitrate Negative (Negative) 08/27/24 13:42 Urine Bilirubin Negative (Negative) 08/27/24 13:42 Urine Urobilinogen 0.2 mg/dL (Negative) 08/27/24 13:42 Ur Leukocyte Esterase Negative (Negative) 08/27/24 13:42 Urine RBC Rare /hpf (0-2) 08/27/24 13:42 Urine WBC None /hpf (0-5) 08/27/24 13:42 Ur Squamous Epith Cells None /hpf (0-5) 08/27/24 13:42 Amorphous Sediment Not Reportable 08/27/24 13:42 Urine Bacteria None /hpf (NONE) 08/27/24 13:42 Hyaline Casts None /lpf 08/27/24 13:42 Urine Opiates Screen Positive ng/mL (Negative) H 08/27/24 13:42 Ur Barbiturates Screen Positive ng/mL (Negative) H 08/27/24 13:42 Ur Phencyclidine Scrn Negative ng/mL (Negative) 08/27/24 13:42 Ur Amphetamines Screen Negative ng/mL (Negative) 08/27/24 13:42 U Benzodiazepines Scrn Positive ng/mL (Negative) H 08/27/24 13:42 Urine Cocaine Screen Negative ng/mL (Negative) 08/27/24 13:42 U Marijuana (THC) Screen Positive ng/mL (Negative) H 08/27/24 13:42 Ethyl Alcohol < 10 mg/dL (0-10) 08/27/24 13:17 Influenza A (PCR) Positive (Negative) 08/27/24 13:42 Influenza Type B (PCR) Negative (Negative) 08/27/24 13:42 RSV (PCR) Negative (Negative) 08/27/24 13:42 SARS-CoV-2 (PCR) Negative (Negative) 08/27/24 13:42 All radiology interpretation(s) finalized by discharge Discharge Plan Discharge Patient Disposition: Home Clinical Impression: Influenza A, Somnolence, Dehydration, Accidental overdose Condition: Stable Prescriptions: No Action Eliquis 5 mg tablet 5 mg PO BID lacosamide 100 mg tablet 100 mg PO BID acetaminophen-codeine 300-15 mg tablet 1 tab PO TID PRN (Reason: Pain) ondansetron 4 mg tablet,disintegrating 4 mg PO Q8H PRN (Reason: nausea and vomiting) Qty: 15 0RF sumatriptan succinate 100 mg Tablet 100 mg PO Q2H PRN (Reason: Migraine Headache) ghfsjradbw-formiofnazmys-spbq 50-325-40 mg tablet 1 tab PO PRN PRN (Reason: Migraine Headache) albuterol sulfate [Ventolin HFA] 90 mcg/actuation Hfa Aerosol Inhaler 1 inh INHALATION QID PRN (Reason: Shortness Of Breath) sulfasalazine 500 mg tablet 1,000 mg PO BID naproxen sodium 220 mg Tablet 220 mg PO BID PRN (Reason: Pain) tizanidine 4 mg tablet 4 mg PO TID PRN (Reason: Muscle Spasm) losartan 50 mg tablet 50 mg PO DAILY doxycycline hyclate 100 mg capsule 100 mg PO BID hydrocodone-acetaminophen 5-325 mg tablet 1 tab PO Q6H PRN (Reason: Pain) prednisone 20 mg tablet See Rx Instructions .ROUTE .COMPLEX Rx Instructions: Take 2 tablets by mouth on days 1 and 2, then 1 tablet daily on days 3 and 4, then 0.5 tablet on days 5 and 6. baclofen 20 mg tablet 20 mg PO TID PRN (Reason: Pain) benzonatate 100 mg capsule 100 mg PO TID PRN (Reason: Cough) pantoprazole 40 mg tablet,delayed release (DR/EC) 40 mg PO BID folic acid 1 mg tablet 2 mg PO DAILY ergocalciferol (vitamin D2) 1,250 mcg (50,000 unit) capsule 50,000 unit PO Q7D diazepam 10 mg tablet 10 mg PO BID PRN (Reason: severe back pain) Discharge Orders: Discharge ED (Routine); Ordered 08/27/24 Ordered By: Leidy Paris Referrals: Chung Loyola MD [Primary Care Provider] - Discharge Diet: Usual diet Discharge Activity: Increase activity as tolerated Patient Instructions: Influenza (ED), Altered Mental Status (ED), Opioid Safety, Pain Management Activity Restrictions/Additional Instructions: Thank you for choosing [facility] for your healthcare needs today. Please realize this is an emergency room and that we are providing you with a medical screening exam and this may not be complete and all inclusive of all the testing and or work up that you may need to determine your ailment or severity of your illness. You have been screened and evaluated and felt safe for discharge. Health conditions do change or evolve sometimes and as such it is important that you follow up with your Primary Doctor to be re checked, 3-5 days is a general good time frame for follow up. You are always welcome to return to the ED for re assessment if your symptoms are worsening or you have new concerns Print Language: Syrian Coding Level of Care Code ED Child And Family Therapist for Natty Wilson
[2024-08-27 13:25] LABS: Basophils % 0.2 %; Eosinophils % 0.2 %; Hematocrit 36.2 % (36-47); Lymphocytes # 0.6 10^3/uL (0.8-4.8); Lymphocytes % 13.7 %; Mean Corpuscular HGB Conc 31.5 g/dL (30-55); Mean Corpuscular Hemoglobin 35.1 pg (27-33); Mean Corpuscular Volume 111.4 fl (85-98); Mean Platelet Volume 11.2 fL (7.4-10.4); Monocytes # 0.6 10^3/uL (0.2-0.9); Monocytes % 13.7 %; Neutrophils # 3.25 10^3/uL (1.8-7.7); Nucleated Red Blood Cells % 0 %; Platelet Count 111 10^3/cmm (157-399); Red Blood Count 3.25 10^6/uL (3.85-5.65); Red Cell Distribution Width 11.2 % (12.1-15.1); White Blood Count 4.52 10^3/uL (3.29-11.43)
[2024-08-27 13:27] VITALS: BP 128/77; PULSE 68; O2SAT 95
[2024-08-27 13:29] LABS: Glucose Point of Care 89 mg/dL (70-110)
[2024-08-27 13:41] LABS: Lactic Sepsis W/Reflex 0.8 mmol/L (0.5-2.2)
[2024-08-27 13:42] LABS: Alanine Aminotransferase 59 U/L (0-33); Albumin Level 4.4 g/dL (3.5-5.2); Alkaline Phosphatase 111 U/L (35-105); Aspartate Amino Transferase 63 U/L (0-32); Blood Urea Nitrogen 26 mg/dL (8-23); C Reactive Protein 26.1 mg/L (0.0-4.9); Calcium 9.2 mg/dL (8.5-10.5); Carbon Dioxide 23 mmol/L (22-29); Chloride 100 mmol/L (98-107); Creatinine Clr Calc Pharmacy 49.0128; Globulin 2.3 g/dL (1.3-4.6); Glomerular Filtration Rate 50.2 mL/min (90-130); Glucose 93 mg/dL (65-115); Osmolality Calculated 286 mOsm/kg (285-295); Sodium 136 mmol/L (136-145); Total Bilirubin 0.2 mg/dL (0.15-1.2); Total Protein 6.7 g/dL (6.6-8.7)
[2024-08-27 13:44] LABS: Alcohol Level < 10 mg/dL (0-10)
[2024-08-27 13:48] LABS: Troponin(5th) Baseline 17 ng/L (0-10)
[2024-08-27 13:54] LABS: Bilirubin Urine Negative (Negative); Blood Urine Non-haemolysed trace (Negative); Glucose Urine UA Negative (Normal); Ketones Urine Negative (Negative); Leukocyte Esterase Urine Negative (Negative); Nitrate Urine Negative (Negative); Protein Urine 1+ (Negative); Urine Appearance Clear (CLEAR); Urine Color Dark Yellow (Yellow); Urobilinogen Urine 0.2 mg/dL (Negative)
[2024-08-27] MEDS: naloxone 0.4 mg/ml SDV IVP ×2 (13:54→14:04)
[2024-08-27 14:00] LABS: Amphetamines Screen Urine Negative (Negative); Barbiturates Screen Urine Positive (Negative); Benzodiazepines Screen Urine Positive (Negative); Cocaine Screen Urine Negative (Negative); Opiate Screen Urine Positive (Negative); PCP Screen Urine Negative (Negative); THC Screen Urine Positive (Negative)
[2024-08-27 14:10] LABS: ABG PCO2 40.8 mmHg (35-45); ABG PH Result 7.37 (7.35-7.45); Alveolar-Arterial Oxygen Gradi 2.3 mmHg (5-10); Arterial Blood Gas Hematocrit 32.7 % (37-47); Base Excess ABG -1.9 mmol/L (-2.0-2.0); Blood Gas Allen Test Pos; Blood Gas Operator Identificat BROMA; Blood Gas Sample Site Radial, right; Blood Gas Sample Type Arterial; HCO3 ABG 23.3 mmol/L (22-26); HGB O2 Sat 94.2 % (95-100); Ionized Calcium Level - ABG 1.2 mmol/L (1.1-1.4); Methemoglobin 0.9 % (0.4-1.5); Oxygen Device ROOM AIR; Oxygen Saturation ABG 95.9; PO2 FiO2 Ratio Arterial Blood 400; Potassium Level - ABG 3.8 mmol/L (3.5-5.0); Total Hemoglobin 10.7 g/dL (12-16)
[2024-08-27 14:12] LABS: INR 1.01 (0.8-1.2); Partial Thromboplastin Time 37.2 SECONDS (23.9-36.7)
[2024-08-27 14:24] LABS: Influenza A POSITIVE (Negative); Influenza B NEGATIVE (Negative); Respiratory Syncytial Virus Ce NEGATIVE (Negative); SARS-CoV-2 PCR NEGATIVE (Negative)
[2024-08-27 14:25] LABS: Specific Gravity, Urine 1.059 (1.005-1.030)
[2024-08-27 14:26] LABS: RBC Urine RARE /hpf (0-2); UA Manual Slide Review YES; UA Slide Review UA Slide Review Perf
[2024-08-27] MEDS: sodium chloride 0.9% 1,000 ML 999 ML IV (14:50)
[2024-08-27 15:30] VITALS: BP 112/59; PULSE 54; O2SAT 94
[2024-08-27 15:45] VITALS: BP 112/59; PULSE 58; O2SAT 96
== END 2024-08-27 15:46 | disposition home or self-care (01) ==
PROVIDERS: Emergency Provider Emergency Medicine; PCP Family Medicine
DX: J10.1 Influenza due to other identified influenza virus with other respiratory manifestations (principal); R40.0 Somnolence; E86.0 Dehydration; T50.901A Poisoning by unspecified drugs, medicaments and biological substances, accidental (unintentional), initial encounter; X58.XXXA Exposure to other specified factors, initial encounter; Z11.52 Encounter for screening for COVID-19; Z79.01 Long term (current) use of anticoagulants
CPT/HCPCS: 36415; 36416; 36600; 70450; 70496; 70498; 71045; 80051; 80053; 80306; 80307; 81001; 82330; 82805; 82962; 83605; 84484; 85025; 85610; 85730; 86140; 87040; 87637; 93005; 96361; 96374; 99285; J2310; J7030